=== PATIENT | female | born 1930 | race Caucasian/White ===

== ENCOUNTER 2017-06-16 10:25 | Day surgery (SDC) | payer OTHER ==
[~2017-06-16 10:25] MED LIST: ALBU90OI INH; ASPI325 PO; ASPI81CH PO; ATOR10; ATOR10 PO; CEPH250A PO; DOCU100 PO; ELIQUIS5 MG PO; ESTR.05PBW TOP; ESTR.05TPB TOP; FOLI1 PO; FURO20 PO; GLIP5 PO; GLYB5 PO; LEVSOD175 PO; LEVSOD50; LEVSOD50 PO; Lisinopril2.5 MG; Lisinopril2.5 MG PO; MELO7.5 PO; METF500 PO; METO25 PO; METTREX2.5; METTREX2.5 PO; Metformin HCl500 MG PO; POTA10T PO; TRIHYD253B PO; WARF5 PO; [UNRECOGNIZED DRUG - REMARK]
== END 2017-06-16 11:41 | disposition home or self-care (01) ==
LOC: WOUND 10:25
PROC: 0HBEXZZ Excision of Left Lower Arm Skin, External Approach (ICD-10-PCS; principal; 2017-06-16)
DX: Z48.00 Encounter for change or removal of nonsurgical wound dressing (principal); E11.621 Type 2 diabetes mellitus with foot ulcer; L97.512 Non-pressure chronic ulcer of other part of right foot with fat layer exposed; T81.31XS Disruption of external operation (surgical) wound, not elsewhere classified, sequela; M05.879 Other rheumatoid arthritis with rheumatoid factor of unspecified ankle and foot; E11.622 Type 2 diabetes mellitus with other skin ulcer; L97.821 Non-pressure chronic ulcer of other part of left lower leg limited to breakdown of skin; L97.222 Non-pressure chronic ulcer of left calf with fat layer exposed; L98.491 Non-pressure chronic ulcer of skin of other sites limited to breakdown of skin
CPT/HCPCS: G0463

== ENCOUNTER 2017-06-23 00:34 | Day surgery (SDC) | payer OTHER | END 2017-06-23 22:44 | disposition home or self-care (01) | LOC: WOUND 00:34 | PROC: 0HBMXZZ Excision of Right Foot Skin, External Approach (ICD-10-PCS; principal; 2017-06-23) | DX: Z48.00 Encounter for change or removal of nonsurgical wound dressing (principal); E11.621 Type 2 diabetes mellitus with foot ulcer; L97.512 Non-pressure chronic ulcer of other part of right foot with fat layer exposed; E11.69 Type 2 diabetes mellitus with other specified complication; M05.879 Other rheumatoid arthritis with rheumatoid factor of unspecified ankle and foot; T81.31XS Disruption of external operation (surgical) wound, not elsewhere classified, sequela | CPT/HCPCS: G0463 ==

== ENCOUNTER 2017-06-30 10:20 | Day surgery (SDC) | payer OTHER | END 2017-06-30 11:39 | disposition home or self-care (01) | LOC: WOUND 10:20 | PROC: 0H5 Skin and Breast, Destruction (ICD-10-PCS; principal; 2017-06-30) | DX: Z48.00 Encounter for change or removal of nonsurgical wound dressing (principal); E11.621 Type 2 diabetes mellitus with foot ulcer; L97.829 Non-pressure chronic ulcer of other part of left lower leg with unspecified severity; L97.519 Non-pressure chronic ulcer of other part of right foot with unspecified severity; T81.31XS Disruption of external operation (surgical) wound, not elsewhere classified, sequela; M05.879 Other rheumatoid arthritis with rheumatoid factor of unspecified ankle and foot; M06.9 Rheumatoid arthritis, unspecified | CPT/HCPCS: G0463 ==

== ENCOUNTER 2017-07-07 13:20 | Day surgery (SDC) | payer OTHER | END 2017-07-07 15:10 | disposition home or self-care (01) | LOC: WOUND 13:20 | DX: Z48.00 Encounter for change or removal of nonsurgical wound dressing (principal); E11.621 Type 2 diabetes mellitus with foot ulcer; L97.512 Non-pressure chronic ulcer of other part of right foot with fat layer exposed; T81.31XS Disruption of external operation (surgical) wound, not elsewhere classified, sequela; M05.879 Other rheumatoid arthritis with rheumatoid factor of unspecified ankle and foot | CPT/HCPCS: 87081; G0463 ==

== ENCOUNTER 2017-07-14 13:16 | Day surgery (SDC) | payer OTHER | END 2017-07-14 23:04 | disposition home or self-care (01) | LOC: WOUND 13:16 | DX: Z48.00 Encounter for change or removal of nonsurgical wound dressing (principal); E11.621 Type 2 diabetes mellitus with foot ulcer; L97.512 Non-pressure chronic ulcer of other part of right foot with fat layer exposed; T81.31XS Disruption of external operation (surgical) wound, not elsewhere classified, sequela; M05.879 Other rheumatoid arthritis with rheumatoid factor of unspecified ankle and foot | CPT/HCPCS: 36415; 80053; 85025; 85651; 87081; G0463 ==

== ENCOUNTER 2017-07-21 01:04 | Day surgery (SDC) | payer OTHER | END 2017-07-21 14:20 | disposition home or self-care (01) | LOC: WOUND 01:04 | DX: Z48.00 Encounter for change or removal of nonsurgical wound dressing (principal); E11.621 Type 2 diabetes mellitus with foot ulcer; L97.512 Non-pressure chronic ulcer of other part of right foot with fat layer exposed; T81.31XS Disruption of external operation (surgical) wound, not elsewhere classified, sequela; M05.879 Other rheumatoid arthritis with rheumatoid factor of unspecified ankle and foot; M21.611 Bunion of right foot | CPT/HCPCS: G0463 ==

== ENCOUNTER 2017-08-04 00:27 | Day surgery (SDC) | payer OTHER | END 2017-08-04 22:43 | disposition home or self-care (01) | LOC: WOUND 00:27 | PROC: 0HRMXK3 Replacement of Right Foot Skin with Nonautologous Tissue Substitute, Full Thickness, External Approach (ICD-10-PCS; principal; 2017-08-04) | DX: Z48.00 Encounter for change or removal of nonsurgical wound dressing (principal); E11.621 Type 2 diabetes mellitus with foot ulcer; L97.512 Non-pressure chronic ulcer of other part of right foot with fat layer exposed; L97.511 Non-pressure chronic ulcer of other part of right foot limited to breakdown of skin; L97.521 Non-pressure chronic ulcer of other part of left foot limited to breakdown of skin; T81.31XD Disruption of external operation (surgical) wound, not elsewhere classified, subsequent encounter; M21.611 Bunion of right foot; M05.879 Other rheumatoid arthritis with rheumatoid factor of unspecified ankle and foot; Z79.899 Other long term (current) drug therapy | CPT/HCPCS: G0463; Q4131 ==

== ENCOUNTER 2017-08-11 11:01 | Day surgery (SDC) | payer OTHER | END 2017-08-11 22:54 | disposition home or self-care (01) | LOC: WOUND 11:01 | DX: Z48.00 Encounter for change or removal of nonsurgical wound dressing (principal); T81.31XA Disruption of external operation (surgical) wound, not elsewhere classified, initial encounter; E11.621 Type 2 diabetes mellitus with foot ulcer; L97.512 Non-pressure chronic ulcer of other part of right foot with fat layer exposed; M05.879 Other rheumatoid arthritis with rheumatoid factor of unspecified ankle and foot; M21.611 Bunion of right foot | CPT/HCPCS: G0463 ==

== ENCOUNTER 2017-08-18 13:05 | Day surgery (SDC) | payer OTHER | END 2017-08-18 23:19 | disposition home or self-care (01) | LOC: WOUND 13:05 | DX: E11.621 Type 2 diabetes mellitus with foot ulcer (principal); L97.512 Non-pressure chronic ulcer of other part of right foot with fat layer exposed; T81.31XA Disruption of external operation (surgical) wound, not elsewhere classified, initial encounter; M05.879 Other rheumatoid arthritis with rheumatoid factor of unspecified ankle and foot; M21.611 Bunion of right foot ==

== ENCOUNTER 2017-08-25 13:15 | Day surgery (SDC) | payer OTHER | END 2017-08-25 15:58 | disposition home or self-care (01) | LOC: WOUND 13:15 | DX: L89.899 Pressure ulcer of other site, unspecified stage (principal); E11.621 Type 2 diabetes mellitus with foot ulcer; L97.512 Non-pressure chronic ulcer of other part of right foot with fat layer exposed; T81.31XA Disruption of external operation (surgical) wound, not elsewhere classified, initial encounter; M05.879 Other rheumatoid arthritis with rheumatoid factor of unspecified ankle and foot; M21.611 Bunion of right foot | CPT/HCPCS: G0463 ==

== ENCOUNTER 2017-09-01 00:37 | Day surgery (SDC) | payer OTHER | END 2017-09-01 14:49 | disposition home or self-care (01) | LOC: WOUND 00:37 | DX: Z48.01 Encounter for change or removal of surgical wound dressing (principal); T81.31XD Disruption of external operation (surgical) wound, not elsewhere classified, subsequent encounter; E11.621 Type 2 diabetes mellitus with foot ulcer; L89.899 Pressure ulcer of other site, unspecified stage; M05.879 Other rheumatoid arthritis with rheumatoid factor of unspecified ankle and foot; M21.611 Bunion of right foot; Z86.14 Personal history of Methicillin resistant Staphylococcus aureus infection | CPT/HCPCS: G0463 ==

== ENCOUNTER 2017-09-08 00:25 | Day surgery (SDC) | payer OTHER | END 2017-09-08 22:38 | disposition home or self-care (01) | LOC: WOUND 00:25 | PROC: 0H5 Skin and Breast, Destruction (ICD-10-PCS; principal; 2017-09-08) | DX: Z48.00 Encounter for change or removal of nonsurgical wound dressing (principal); L89.892 Pressure ulcer of other site, stage 2; M06.9 Rheumatoid arthritis, unspecified; T81.31XD Disruption of external operation (surgical) wound, not elsewhere classified, subsequent encounter; E11.621 Type 2 diabetes mellitus with foot ulcer | CPT/HCPCS: G0463 ==

== ENCOUNTER 2017-09-15 13:15 | Day surgery (SDC) | payer OTHER | END 2017-09-15 15:10 | disposition home or self-care (01) | LOC: WOUND 13:15 | DX: E11.621 Type 2 diabetes mellitus with foot ulcer (principal); T81.31XA Disruption of external operation (surgical) wound, not elsewhere classified, initial encounter; L97.512 Non-pressure chronic ulcer of other part of right foot with fat layer exposed; M05.879 Other rheumatoid arthritis with rheumatoid factor of unspecified ankle and foot; M21.611 Bunion of right foot | CPT/HCPCS: G0463 ==

== ENCOUNTER 2017-09-17 11:07 | Day surgery (SDC) | payer OTHER | END 2017-09-17 22:50 | disposition home or self-care (01) | LOC: WOUND 11:07 | PROC: 2W1RX6Z Compression of Left Lower Leg using Pressure Dressing (ICD-10-PCS; principal; 2017-09-17) | DX: T81.31XA Disruption of external operation (surgical) wound, not elsewhere classified, initial encounter (principal); E11.621 Type 2 diabetes mellitus with foot ulcer; L97.512 Non-pressure chronic ulcer of other part of right foot with fat layer exposed; M05.879 Other rheumatoid arthritis with rheumatoid factor of unspecified ankle and foot; M21.611 Bunion of right foot ==

== ENCOUNTER 2017-09-22 13:12 | Day surgery (SDC) | payer OTHER | END 2017-09-22 22:57 | disposition home or self-care (01) | LOC: WOUND 13:12 | DX: E11.621 Type 2 diabetes mellitus with foot ulcer (principal); T81.31XA Disruption of external operation (surgical) wound, not elsewhere classified, initial encounter; L97.812 Non-pressure chronic ulcer of other part of right lower leg with fat layer exposed; M05.879 Other rheumatoid arthritis with rheumatoid factor of unspecified ankle and foot; M21.611 Bunion of right foot | CPT/HCPCS: G0463 ==

== ENCOUNTER 2017-09-29 13:15 | Day surgery (SDC) | payer OTHER | END 2017-09-29 22:53 | disposition home or self-care (01) | LOC: WOUND 13:15 | DX: Z48.00 Encounter for change or removal of nonsurgical wound dressing (principal); E11.621 Type 2 diabetes mellitus with foot ulcer; L97.512 Non-pressure chronic ulcer of other part of right foot with fat layer exposed; T81.31XA Disruption of external operation (surgical) wound, not elsewhere classified, initial encounter; M21.611 Bunion of right foot | CPT/HCPCS: G0463 ==

== ENCOUNTER 2017-10-06 13:13 | Day surgery (SDC) | payer OTHER | END 2017-10-06 22:57 | disposition home or self-care (01) | LOC: WOUND 13:13 | DX: E11.621 Type 2 diabetes mellitus with foot ulcer (principal); L97.512 Non-pressure chronic ulcer of other part of right foot with fat layer exposed; T81.31XA Disruption of external operation (surgical) wound, not elsewhere classified, initial encounter; M05.879 Other rheumatoid arthritis with rheumatoid factor of unspecified ankle and foot; M21.611 Bunion of right foot | CPT/HCPCS: G0463 ==

== ENCOUNTER 2017-10-13 13:05 | Day surgery (SDC) | payer OTHER | END 2017-10-13 23:36 | disposition home or self-care (01) | LOC: WOUND 13:05 | PROC: 0H5 Skin and Breast, Destruction (ICD-10-PCS; principal; 2017-10-13) | DX: E11.621 Type 2 diabetes mellitus with foot ulcer (principal); L97.512 Non-pressure chronic ulcer of other part of right foot with fat layer exposed; T81.31XA Disruption of external operation (surgical) wound, not elsewhere classified, initial encounter; M05.879 Other rheumatoid arthritis with rheumatoid factor of unspecified ankle and foot; M21.611 Bunion of right foot ==

== ENCOUNTER 2017-10-20 13:04 | Day surgery (SDC) | payer OTHER | END 2017-10-20 22:47 | disposition home or self-care (01) | LOC: WOUND 13:04 | PROC: 0HBMXZZ Excision of Right Foot Skin, External Approach (ICD-10-PCS; principal; 2017-10-20) | DX: E11.621 Type 2 diabetes mellitus with foot ulcer (principal); L97.512 Non-pressure chronic ulcer of other part of right foot with fat layer exposed; T81.31XA Disruption of external operation (surgical) wound, not elsewhere classified, initial encounter; M05.879 Other rheumatoid arthritis with rheumatoid factor of unspecified ankle and foot; M21.611 Bunion of right foot | CPT/HCPCS: G0463 ==

== ENCOUNTER 2017-10-27 13:06 | Day surgery (SDC) | payer OTHER | END 2017-10-27 22:40 | disposition home or self-care (01) | LOC: WOUND 13:06 | DX: Z48.00 Encounter for change or removal of nonsurgical wound dressing (principal); E11.621 Type 2 diabetes mellitus with foot ulcer; L97.512 Non-pressure chronic ulcer of other part of right foot with fat layer exposed; M05.879 Other rheumatoid arthritis with rheumatoid factor of unspecified ankle and foot; M21.611 Bunion of right foot; T81.31XA Disruption of external operation (surgical) wound, not elsewhere classified, initial encounter | CPT/HCPCS: G0463 ==

== ENCOUNTER 2017-11-03 00:32 | Day surgery (SDC) | payer OTHER | END 2017-11-03 14:39 | disposition home or self-care (01) | LOC: WOUND 00:32 | PROC: 0H5 Skin and Breast, Destruction (ICD-10-PCS; principal; 2017-11-03) | DX: E11.621 Type 2 diabetes mellitus with foot ulcer (principal); L97.512 Non-pressure chronic ulcer of other part of right foot with fat layer exposed; T81.31XA Disruption of external operation (surgical) wound, not elsewhere classified, initial encounter; L89.899 Pressure ulcer of other site, unspecified stage | CPT/HCPCS: G0463 ==

== ENCOUNTER 2017-11-10 | Day surgery (SDC) | END 2017-11-10 14:41 | disposition home or self-care (01) ==

== ENCOUNTER 2017-11-17 00:21 | Day surgery (SDC) | payer OTHER | END 2017-11-17 23:06 | disposition home or self-care (01) | LOC: WOUND 00:21 | DX: Z48.00 Encounter for change or removal of nonsurgical wound dressing (principal); E11.621 Type 2 diabetes mellitus with foot ulcer; L97.512 Non-pressure chronic ulcer of other part of right foot with fat layer exposed; T81.31XA Disruption of external operation (surgical) wound, not elsewhere classified, initial encounter; M05.879 Other rheumatoid arthritis with rheumatoid factor of unspecified ankle and foot; M21.611 Bunion of right foot | CPT/HCPCS: G0463 ==

== ENCOUNTER 2017-11-24 13:15 | Day surgery (SDC) | payer OTHER | END 2017-11-24 14:27 | disposition home or self-care (01) | LOC: WOUND 13:15 | DX: Z48.01 Encounter for change or removal of surgical wound dressing (principal); T81.31XA Disruption of external operation (surgical) wound, not elsewhere classified, initial encounter; E11.621 Type 2 diabetes mellitus with foot ulcer; L97.812 Non-pressure chronic ulcer of other part of right lower leg with fat layer exposed; M05.879 Other rheumatoid arthritis with rheumatoid factor of unspecified ankle and foot; M21.611 Bunion of right foot | CPT/HCPCS: G0463 ==

== ENCOUNTER 2017-12-01 15:21 | Observation (INO) | payer OTHER ==
[~2017-12-01] VITALS: Ht 157.5 cm; Wt 58.0 kg
[2017-12-01 19:44] LABS: BASOPHILS ABSOLUTE AUTO 0.04 K/mm3 (0.00-0.23); BASOPHILS PERCENT AUTO 0 % (0-2); EOSINOPHILS ABSOLUTE AUTO 0.01 K/mm3 (0.00-0.68); EOSINOPHILS PERCENT AUTO 0 % (0-6); Hematocrit 30.6 % (33.0-51.0); Hemoglobin 10.1 g/dL (11.5-16.0); IMMATURE GRAN ABSOLUTE AUTO 0.09 K/mm3 (0.00-0.10); IMMATURE GRAN PERCENT AUTO 1 % (0-1); LYMPHOCYTES ABSOLUTE AUTO 0.71 K/mm3 (0.84-5.20); LYMPHOCYTES PERCENT AUTO 5 % (21-46); MONOCYTES ABSOLUTE AUTO 1.02 K/mm3 (0.16-1.47); MONOCYTES PERCENT AUTO 7 % (4-13); Mean Corpuscular HGB 29.3 pg (26.0-34.0); Mean Corpuscular Volume 89 fL (80-100); Mean Platelet Volume 10.8 fL (9.1-12.4); NEUTROPHILS ABSOLUTE AUTO 13.45 K/mm3 (1.96-9.15); NEUTROPHILS PERCENT AUTO 88 % (41-73); Platelet Count 276 K/mm3 (150-400); RDW Coefficient Variation 17.6 % (11.7-14.2); RDW Standard Deviation 53.8 fL (35.1-46.3); Red Blood Cell Count 3.45 M/mm3 (3.80-5.20); White Blood Cell Count 15.32 K/mm3 (4.00-11.30)
[2017-12-01 20:02] LABS: Alanine Aminotransfer (ALT/SGP 22 U/L (12-78); Albumin, Blood 3.6 g/dL (3.4-5.0); Albumin/Globulin Ratio 0.9 (0.8-1.8); Alk Phos 105 U/L (50-136); Anion Gap 13 mmol/L (6-16); Aspartate Aminotrans (AST/SGOT 18 U/L (12-37); Bilirubin, Total 0.4 mg/dL (0.1-1.0); Blood Urea Nitrogen 24 mg/dL (8-24); Bun/Creatinine Ratio 27.4 (12.0-20.0); CO2, Blood 23 mmol/L (21-32); Calcium, Blood 9.3 mg/dL (8.5-10.1); Chloride, Blood 98 mmol/L (98-108); Creatinine, Blood 0.88 mg/dL (0.40-1.00); Glomerular Filtration Rate >60 (60-); Glucose, Blood 215 mg/dL (70-99); Potassium, Blood 3.5 mmol/L (3.5-5.5); Sodium, Blood 134 mmol/L (136-145); Total Protein, Blood 7.6 g/dL (6.4-8.2)
[2017-12-01 20:55] LABS: Source, Urine Catheter
[2017-12-01 21:03] LABS: Bilirubin, Urine Neg (Neg); Blood, Urine 1+ (Neg); Glucose Qualitative, Urine 2+ (Neg); Ketones, Urine Neg (Neg); Leukocyte Esterase, Urine Neg (Neg); Nitrite, Urine Neg (Neg); Protein, Urine Neg (Neg); Urobilinogen, Urine NORM (Normal)
[2017-12-01 21:16] LABS: Appearance, Urine Clear (Clear); Color, Urine Pale Yellow (P-Yellow)
[2017-12-01 21:18] LABS: Bacteria Not Seen /hpf; Red Blood Cells, Urine 0-2 /hpf (0-2); Squamous Epithelial Cells Rare /hpf (Few); White Blood Cells, Urine Not Seen /hpf (0-5)
[2017-12-02 04:31] LABS: BASOPHILS ABSOLUTE AUTO 0.02 K/mm3 (0.00-0.23); BASOPHILS PERCENT AUTO 0 % (0-2); EOSINOPHILS ABSOLUTE AUTO 0.05 K/mm3 (0.00-0.68); EOSINOPHILS PERCENT AUTO 1 % (0-6); Hematocrit 28.3 % (33.0-51.0); Hemoglobin 9.2 g/dL (11.5-16.0); IMMATURE GRAN ABSOLUTE AUTO 0.04 K/mm3 (0.00-0.10); IMMATURE GRAN PERCENT AUTO 1 % (0-1); LYMPHOCYTES ABSOLUTE AUTO 0.92 K/mm3 (0.84-5.20); LYMPHOCYTES PERCENT AUTO 13 % (21-46); MONOCYTES ABSOLUTE AUTO 0.78 K/mm3 (0.16-1.47); MONOCYTES PERCENT AUTO 11 % (4-13); Mean Corpuscular HGB 28.8 pg (26.0-34.0); Mean Corpuscular HGB Conc 32.5 g/dL (31.5-36.5); Mean Corpuscular Volume 89 fL (80-100); Mean Platelet Volume 11.1 fL (9.1-12.4); NEUTROPHILS ABSOLUTE AUTO 5.04 K/mm3 (1.96-9.15); NEUTROPHILS PERCENT AUTO 74 % (41-73); Platelet Count 231 K/mm3 (150-400); RDW Coefficient Variation 17.6 % (11.7-14.2); RDW Standard Deviation 54.6 fL (35.1-46.3); Red Blood Cell Count 3.19 M/mm3 (3.80-5.20); White Blood Cell Count 6.85 K/mm3 (4.00-11.30)
[2017-12-02 04:57] LABS: Anion Gap 10 mmol/L (6-16); Blood Urea Nitrogen 23 mg/dL (8-24); Bun/Creatinine Ratio 27.3 (12.0-20.0); CO2, Blood 28 mmol/L (21-32); Calcium, Blood 9.2 mg/dL (8.5-10.1); Chloride, Blood 99 mmol/L (98-108); Creatinine, Blood 0.84 mg/dL (0.40-1.00); Glomerular Filtration Rate >60 (60-); Glucose, Blood 135 mg/dL (70-99); Potassium, Blood 3.7 mmol/L (3.5-5.5); Sodium, Blood 137 mmol/L (136-145)
[2017-12-02] MEDS ORDERED: OMEPRAZOLE MAGN20 MG PO (09:32)
[2017-12-03] MEDS ORDERED: GAVILAX17 GM PO (11:10)
[2017-12-03] MEDS ORDERED: ACET325 PO (11:10)
[2017-12-03] MEDS ORDERED: HYDR1TAB94 PO (11:11)
== END 2017-12-03 18:02 ==
LOC: ER 15:21 → SURS 15:22 → ER 18:42 → SURS 18:42
PROVIDERS: Hospitalist; Nurse Practitioner Family
DX: S32.592A Other specified fracture of left pubis, initial encounter for closed fracture (principal); S42.292A Other displaced fracture of upper end of left humerus, initial encounter for closed fracture; I10 Essential (primary) hypertension; E11.9 Type 2 diabetes mellitus without complications; E03.9 Hypothyroidism, unspecified; I48.91 Unspecified atrial fibrillation; K21.9 Gastro-esophageal reflux disease without esophagitis; M06.9 Rheumatoid arthritis, unspecified; Z79.01 Long term (current) use of anticoagulants; Z79.899 Other long term (current) drug therapy; W01.0XXA Fall on same level from slipping, tripping and stumbling without subsequent striking against object, initial encounter
CPT/HCPCS: 36415; 51702; 73030; 73502; 80048; 80053; 81001; 82947; 85025; 97116; 97162; 97166; 97530; 97535; 99285; G8978; G8979; G8987; G8988; J2405

== ENCOUNTER 2018-06-02 00:19 | Day surgery (SDC) | payer OTHER ==
[~2018-06-02 00:19] MED LIST changes: +ACET325 PO; +GAVILAX17 GM PO; +HYDR1TAB94 PO; +OMEPRAZOLE MAGN20 MG PO
== END 2018-06-02 22:49 | disposition home or self-care (01) ==
LOC: WOUND 00:19
DX: E11.621 Type 2 diabetes mellitus with foot ulcer (principal); L97.822 Non-pressure chronic ulcer of other part of left lower leg with fat layer exposed; L97.521 Non-pressure chronic ulcer of other part of left foot limited to breakdown of skin; M06.9 Rheumatoid arthritis, unspecified; E11.21 Type 2 diabetes mellitus with diabetic nephropathy
CPT/HCPCS: G0463

== ENCOUNTER 2018-06-16 12:30 | Day surgery (SDC) | payer OTHER | END 2018-06-16 22:43 | disposition home or self-care (01) | LOC: WOUND 12:30 | DX: E11.621 Type 2 diabetes mellitus with foot ulcer (principal); E11.622 Type 2 diabetes mellitus with other skin ulcer; L97.822 Non-pressure chronic ulcer of other part of left lower leg with fat layer exposed; L97.529 Non-pressure chronic ulcer of other part of left foot with unspecified severity; S91.301A Unspecified open wound, right foot, initial encounter; E11.21 Type 2 diabetes mellitus with diabetic nephropathy; M06.9 Rheumatoid arthritis, unspecified | CPT/HCPCS: 87070; 87077; 87186; 87205 ==

== ENCOUNTER 2018-06-23 13:15 | Day surgery (SDC) | payer OTHER | END 2018-06-23 22:39 | disposition home or self-care (01) | LOC: WOUND 13:15 | DX: E11.621 Type 2 diabetes mellitus with foot ulcer (principal); E11.622 Type 2 diabetes mellitus with other skin ulcer; L97.822 Non-pressure chronic ulcer of other part of left lower leg with fat layer exposed; L97.529 Non-pressure chronic ulcer of other part of left foot with unspecified severity; M06.9 Rheumatoid arthritis, unspecified; Z79.01 Long term (current) use of anticoagulants | CPT/HCPCS: G0463 ==

== ENCOUNTER 2018-07-07 00:19 | Day surgery (SDC) | payer OTHER | END 2018-07-07 22:40 | disposition home or self-care (01) | LOC: WOUND 00:19 | DX: E11.622 Type 2 diabetes mellitus with other skin ulcer (principal); L97.822 Non-pressure chronic ulcer of other part of left lower leg with fat layer exposed; L97.529 Non-pressure chronic ulcer of other part of left foot with unspecified severity; M06.9 Rheumatoid arthritis, unspecified; E11.21 Type 2 diabetes mellitus with diabetic nephropathy; Z79.84 Long term (current) use of oral hypoglycemic drugs; Z79.01 Long term (current) use of anticoagulants | CPT/HCPCS: G0463 ==

== ENCOUNTER 2018-07-15 09:59 | Day surgery (SDC) | payer OTHER | END 2018-07-15 23:18 | disposition home or self-care (01) | LOC: WOUND 09:59 | DX: E11.621 Type 2 diabetes mellitus with foot ulcer (principal); L97.822 Non-pressure chronic ulcer of other part of left lower leg with fat layer exposed; L97.528 Non-pressure chronic ulcer of other part of left foot with other specified severity; E11.622 Type 2 diabetes mellitus with other skin ulcer; E11.21 Type 2 diabetes mellitus with diabetic nephropathy; M06.9 Rheumatoid arthritis, unspecified; Z79.01 Long term (current) use of anticoagulants; Z79.84 Long term (current) use of oral hypoglycemic drugs ==

== ENCOUNTER 2018-07-28 00:35 | Day surgery (SDC) | payer OTHER | END 2018-07-28 22:46 | disposition home or self-care (01) | LOC: WOUND 00:35 | DX: E11.621 Type 2 diabetes mellitus with foot ulcer (principal); L97.829 Non-pressure chronic ulcer of other part of left lower leg with unspecified severity; L97.529 Non-pressure chronic ulcer of other part of left foot with unspecified severity; M06.9 Rheumatoid arthritis, unspecified; E11.21 Type 2 diabetes mellitus with diabetic nephropathy; E11.622 Type 2 diabetes mellitus with other skin ulcer; Z79.01 Long term (current) use of anticoagulants; Z79.84 Long term (current) use of oral hypoglycemic drugs | CPT/HCPCS: G0463 ==

== ENCOUNTER 2018-08-05 00:17 | Day surgery (SDC) | payer OTHER | END 2018-08-05 22:43 | disposition home or self-care (01) | LOC: WOUND 00:17 | DX: E11.622 Type 2 diabetes mellitus with other skin ulcer (principal); L97.822 Non-pressure chronic ulcer of other part of left lower leg with fat layer exposed; L97.529 Non-pressure chronic ulcer of other part of left foot with unspecified severity; L97.519 Non-pressure chronic ulcer of other part of right foot with unspecified severity; E11.21 Type 2 diabetes mellitus with diabetic nephropathy; M06.9 Rheumatoid arthritis, unspecified; Z79.84 Long term (current) use of oral hypoglycemic drugs ==

== ENCOUNTER 2018-09-01 00:33 | Day surgery (SDC) | payer OTHER | END 2018-09-01 22:36 | disposition home or self-care (01) | LOC: WOUND 00:33 | DX: E11.621 Type 2 diabetes mellitus with foot ulcer (principal); E11.622 Type 2 diabetes mellitus with other skin ulcer; L97.822 Non-pressure chronic ulcer of other part of left lower leg with fat layer exposed; L97.522 Non-pressure chronic ulcer of other part of left foot with fat layer exposed; L97.221 Non-pressure chronic ulcer of left calf limited to breakdown of skin; L97.511 Non-pressure chronic ulcer of other part of right foot limited to breakdown of skin; L97.811 Non-pressure chronic ulcer of other part of right lower leg limited to breakdown of skin; E11.21 Type 2 diabetes mellitus with diabetic nephropathy; E11.42 Type 2 diabetes mellitus with diabetic polyneuropathy; I48.91 Unspecified atrial fibrillation; I10 Essential (primary) hypertension; M06.9 Rheumatoid arthritis, unspecified ==

== ENCOUNTER 2018-09-08 00:11 | Day surgery (SDC) | payer OTHER | END 2018-09-08 22:40 | disposition home or self-care (01) | LOC: WOUND 00:11 | DX: E11.622 Type 2 diabetes mellitus with other skin ulcer (principal); L97.221 Non-pressure chronic ulcer of left calf limited to breakdown of skin; L97.811 Non-pressure chronic ulcer of other part of right lower leg limited to breakdown of skin; E11.621 Type 2 diabetes mellitus with foot ulcer; L97.511 Non-pressure chronic ulcer of other part of right foot limited to breakdown of skin; E11.21 Type 2 diabetes mellitus with diabetic nephropathy; M06.9 Rheumatoid arthritis, unspecified; I10 Essential (primary) hypertension | CPT/HCPCS: G0463 ==

== ENCOUNTER 2018-09-15 01:26 | Day surgery (SDC) | payer OTHER | END 2018-09-15 23:12 | disposition home or self-care (01) | LOC: WOUND 01:26 | DX: E11.622 Type 2 diabetes mellitus with other skin ulcer (principal); L97.812 Non-pressure chronic ulcer of other part of right lower leg with fat layer exposed; L97.829 Non-pressure chronic ulcer of other part of left lower leg with unspecified severity; L97.529 Non-pressure chronic ulcer of other part of left foot with unspecified severity; L97.519 Non-pressure chronic ulcer of other part of right foot with unspecified severity; E11.42 Type 2 diabetes mellitus with diabetic polyneuropathy; E11.21 Type 2 diabetes mellitus with diabetic nephropathy; I10 Essential (primary) hypertension; I48.91 Unspecified atrial fibrillation; M06.9 Rheumatoid arthritis, unspecified; Z79.84 Long term (current) use of oral hypoglycemic drugs; Z79.899 Other long term (current) drug therapy | CPT/HCPCS: G0463 ==

== ENCOUNTER 2018-09-30 10:52 | Day surgery (SDC) | payer OTHER | END 2018-09-30 22:46 | disposition home or self-care (01) | LOC: WOUND 10:52 | DX: E11.622 Type 2 diabetes mellitus with other skin ulcer (principal); L97.221 Non-pressure chronic ulcer of left calf limited to breakdown of skin; L97.511 Non-pressure chronic ulcer of other part of right foot limited to breakdown of skin; L97.811 Non-pressure chronic ulcer of other part of right lower leg limited to breakdown of skin; E11.42 Type 2 diabetes mellitus with diabetic polyneuropathy; E11.21 Type 2 diabetes mellitus with diabetic nephropathy; I48.91 Unspecified atrial fibrillation; I10 Essential (primary) hypertension; M06.9 Rheumatoid arthritis, unspecified ==

== ENCOUNTER 2018-10-11 10:55 | Day surgery (SDC) | payer OTHER | END 2018-10-11 23:07 | disposition home or self-care (01) | LOC: WOUND 10:55 | DX: E11.622 Type 2 diabetes mellitus with other skin ulcer (principal); E11.621 Type 2 diabetes mellitus with foot ulcer; L97.511 Non-pressure chronic ulcer of other part of right foot limited to breakdown of skin; L97.811 Non-pressure chronic ulcer of other part of right lower leg limited to breakdown of skin; L97.221 Non-pressure chronic ulcer of left calf limited to breakdown of skin; L97.829 Non-pressure chronic ulcer of other part of left lower leg with unspecified severity; E11.42 Type 2 diabetes mellitus with diabetic polyneuropathy; I48.91 Unspecified atrial fibrillation; I10 Essential (primary) hypertension; M06.9 Rheumatoid arthritis, unspecified | CPT/HCPCS: G0463 ==

== ENCOUNTER 2018-10-27 00:06 | Day surgery (SDC) | payer OTHER | END 2018-10-27 22:45 | disposition home or self-care (01) | LOC: WOUND 00:06 | DX: E11.621 Type 2 diabetes mellitus with foot ulcer (principal); E11.622 Type 2 diabetes mellitus with other skin ulcer; L97.511 Non-pressure chronic ulcer of other part of right foot limited to breakdown of skin; L97.221 Non-pressure chronic ulcer of left calf limited to breakdown of skin; L97.811 Non-pressure chronic ulcer of other part of right lower leg limited to breakdown of skin; E11.42 Type 2 diabetes mellitus with diabetic polyneuropathy; E11.21 Type 2 diabetes mellitus with diabetic nephropathy; I10 Essential (primary) hypertension; I48.91 Unspecified atrial fibrillation; M06.9 Rheumatoid arthritis, unspecified | CPT/HCPCS: G0463 ==

== ENCOUNTER 2018-11-11 13:31 | Day surgery (SDC) | payer OTHER | END 2018-11-11 23:13 | disposition home or self-care (01) | LOC: WOUND 13:31 | DX: E11.621 Type 2 diabetes mellitus with foot ulcer (principal); E11.622 Type 2 diabetes mellitus with other skin ulcer; L97.221 Non-pressure chronic ulcer of left calf limited to breakdown of skin; L97.511 Non-pressure chronic ulcer of other part of right foot limited to breakdown of skin; L97.811 Non-pressure chronic ulcer of other part of right lower leg limited to breakdown of skin; E11.42 Type 2 diabetes mellitus with diabetic polyneuropathy; M06.9 Rheumatoid arthritis, unspecified; I48.91 Unspecified atrial fibrillation; I10 Essential (primary) hypertension; E11.21 Type 2 diabetes mellitus with diabetic nephropathy | CPT/HCPCS: G0463 ==

== ENCOUNTER 2019-02-14 15:11 | Inpatient (IN) | payer OTHER ==
[~2019-02-14] VITALS: Ht 167.6 cm; Wt 62.0 kg
[2019-02-14 15:51] LABS: BASOPHILS ABSOLUTE AUTO 0.02 K/mm3 (0.00-0.23); BASOPHILS PERCENT AUTO 0 % (0-2); EOSINOPHILS ABSOLUTE AUTO 0.01 K/mm3 (0.00-0.68); EOSINOPHILS PERCENT AUTO 0 % (0-6); Hematocrit 30.1 % (33.0-51.0); Hemoglobin 10.3 g/dL (11.5-16.0); IMMATURE GRAN PERCENT AUTO 1 % (0-1); LYMPHOCYTES ABSOLUTE AUTO 0.33 K/mm3 (0.84-5.20); LYMPHOCYTES PERCENT AUTO 2 % (21-46); MONOCYTES ABSOLUTE AUTO 0.59 K/mm3 (0.16-1.47); MONOCYTES PERCENT AUTO 4 % (4-13); Mean Corpuscular HGB 33.1 pg (26.0-34.0); Mean Corpuscular HGB Conc 34.2 g/dL (31.5-36.5); Mean Corpuscular Volume 97 fL (80-100); Mean Platelet Volume 10.3 fL (9.1-12.4); NEUTROPHILS ABSOLUTE AUTO 14.27 K/mm3 (1.96-9.15); NEUTROPHILS PERCENT AUTO 93 % (41-73); Platelet Count 284 K/mm3 (150-400); RDW Coefficient Variation 16.7 % (11.7-14.2); Red Blood Cell Count 3.11 M/mm3 (3.80-5.20); White Blood Cell Count 15.32 K/mm3 (4.00-11.30)
[2019-02-14 16:08] LABS: Albumin, Blood 3.1 g/dL (3.4-5.0); Albumin/Globulin Ratio 0.6 (0.8-1.8); Bilirubin, Total 1.2 mg/dL (0.1-1.0); Bun/Creatinine Ratio 27.3 (12.0-20.0); Calcium, Blood 10.4 mg/dL (8.5-10.1); Creatinine, Blood 1.1 mg/dL (0.40-1.00); Globulin, Blood 4.9 g/dL (2.2-4.0); Potassium, Blood 3.2 mmol/L (3.5-5.5)
[2019-02-15 03:38] LABS: BASOPHILS ABSOLUTE AUTO 0.03 K/mm3 (0.00-0.23); BASOPHILS PERCENT AUTO 0 % (0-2); EOSINOPHILS ABSOLUTE AUTO 0.08 K/mm3 (0.00-0.68); EOSINOPHILS PERCENT AUTO 1 % (0-6); Hematocrit 32.4 % (33.0-51.0); Hemoglobin 10.5 g/dL (11.5-16.0); IMMATURE GRAN ABSOLUTE AUTO 0.08 K/mm3 (0.00-0.10); IMMATURE GRAN PERCENT AUTO 1 % (0-1); LYMPHOCYTES PERCENT AUTO 3 % (21-46); MONOCYTES ABSOLUTE AUTO 0.83 K/mm3 (0.16-1.47); MONOCYTES PERCENT AUTO 6 % (4-13); Mean Corpuscular HGB 33.2 pg (26.0-34.0); Mean Corpuscular HGB Conc 32.4 g/dL (31.5-36.5); Mean Platelet Volume 10.5 fL (9.1-12.4); NEUTROPHILS ABSOLUTE AUTO 12.32 K/mm3 (1.96-9.15); NEUTROPHILS PERCENT AUTO 90 % (41-73); Platelet Count 227 K/mm3 (150-400); RDW Coefficient Variation 17.1 % (11.7-14.2); RDW Standard Deviation 63.1 fL (35.1-46.3); Red Blood Cell Count 3.16 M/mm3 (3.80-5.20); White Blood Cell Count 13.74 K/mm3 (4.00-11.30)
[2019-02-15 03:46] LABS: Mean Corpuscular Volume 103 fL (80-100)
[2019-02-15 04:12] LABS: International Normalized Ratio 1.13; Prothrombin Time Results 11.8 Sec (9.7-11.5)
[2019-02-15 04:17] LABS: Anion Gap 9 mmol/L (6-16); Blood Urea Nitrogen 26 mg/dL (8-24); Bun/Creatinine Ratio 29.3 (12.0-20.0); CO2, Blood 22 mmol/L (21-32); Calcium, Blood 9.3 mg/dL (8.5-10.1); Chloride, Blood 103 mmol/L (98-108); Creatinine, Blood 0.89 mg/dL (0.40-1.00); Glomerular Filtration Rate >60 (60-); Glucose, Blood 121 mg/dL (70-99); Potassium, Blood 4.3 mmol/L (3.5-5.5); Sodium, Blood 134 mmol/L (136-145)
--- NOTE | 2019-02-15 06:16 | NUR ---
SHIFT SUMMARY PT SLEEPING IN ROOM COMFORTABLY AT THIS TIME. NO ACUTE CHANGES IN STATUS SINCE ARRIVAL TO UNIT. PT ABLE TO STAND AND WALK TO RR W/ SBA AND 4WW. PT HAS WOUND TO LEFT FOOT THAT IS DRESSED AND WRAPPED IN STOCKINETTE. RESP EVEN UNLABORED ON RA W/ SATS >92%. PT DENIES ANY CP OR SOB. PT DOES REPORT SOME PAIN TO NECK D/T "SLEEPING FUNNY". PT WAS MEDICATED PER EMAR. NS INFUSING IN PIV TO LAC. CALL LIGHT IN REACH.
--- NOTE | 2019-02-15 11:20 | NUR ---
NOON ASSESSMENT NO CHANGES TO REPORT SINCE AM ASSESSMENT. PT REPORTS N/T TO L FOOT/TOES. AWAIING DR. DUMONT FOR CONSULT. PT REMAINS NPO AT THIS TIME.
--- NOTE | 2019-02-15 16:42 | NUR ---
PT TAKEN TO DAY SURGERY AT THIS TIME.
--- NOTE | 2019-02-15 16:43 | NUR ---
AFTERNOON ASSESSMENT NO CHANGE IN PATIENTS CONDITION SINCE PREVIOUS ASSESSMENT. DRESSING PLACED TO LLE, SEROSANGUINOUS DRAINAGE FROM WOUND. CAP REFILL WNL LLE. WILL CONTINUE TO MONITOR.
--- NOTE | 2019-02-15 17:01 | NUR ---
History, Chart, Medications and Allergies reviewed before start of procedure.Patient confirms NPO status and agrees with scheduled surgery.PATIENT CAME TO DAY SURGERY FROM PCU 8 VIA GURNEY. DENTURES OK TO LEAVE IN FOR SURGERY VIA ANESTHESIOLOGIST.
--- NOTE | 2019-02-15 17:13 | NUR ---
YOUSIF IN DAY SURGERY NOTIFIED THAT PT IS DIABETIC.
--- NOTE | 2019-02-15 17:51 | NUR ---
02/15/[address] INJECTED 1% LIDO AND 0.5% MARCAINE 20 ML 1:1 RATIO
--- NOTE | 2019-02-15 19:39 | NUR ---
SHIFT SUMMARY PT ARRIVED BACK TO THE ROOM POST-OP AT APPROXIMATELY 1840. PT ALERT AND ORIENTED UPON ARRIVAL. SHE DENIES PAIN. VSS. CAP REFILL TO LLE WNL, DRESSING C/D/I. REPORT GIVEN TO STELLA TRONCOSO.
[2019-02-15 20:20] LABS: Vancomycin, Trough 5.3 ug/mL (5.0-10.0)
[2019-02-16 04:30] LABS: Anion Gap 9 mmol/L (6-16); Blood Urea Nitrogen 29 mg/dL (8-24); Bun/Creatinine Ratio 36.7 (12.0-20.0); CO2, Blood 20 mmol/L (21-32); Calcium, Blood 9.2 mg/dL (8.5-10.1); Chloride, Blood 105 mmol/L (98-108); Creatinine, Blood 0.79 mg/dL (0.40-1.00); Glomerular Filtration Rate >60 (60-); Glucose, Blood 103 mg/dL (70-99); Sodium, Blood 134 mmol/L (136-145)
--- NOTE | 2019-02-16 05:35 | NUR ---
SHIFT SUMMARY PT HAS REMAINED AOX4 THROUGHOUT SHIFT. VSS. PLEASANT AND COOPERATIVE WITH CARE. PT WITH POST SURGICAL DRESSING TO L FOOT WITH VERBAL ORDERS PER PREVIOUS RN TO KEEP DRESSING IN PLACE UNTIL RE-DRESSED BY SURGEON, REINFORCEMENT OF DRESSING OK IF STARTING TO LEAK. DRESSING HAS REMAINED C/D/I THROUGHOUT SHIFT. EXPOSED FOOT HAS REMAINED PINK AND DRY W/CAP REFILL WNL. PT AMBULATES WITH STANDBY ASSIST AND FWW TO BS. TOLERATES SOME WEIGHT BEARING ON L FOOT, BUT PREFERS PIVOT TRANSFER. DENIES PAIN THROUGHOUT THE NIGHT. POWERGLIDE PLACED TO IZA. CARDIAC RHYTHM REMAINS IN A-FIB WITH AN AVERAGE RATE IN THE 80s PER MONITOR, PT WILL OCCASIONALLY BECOME TACHYCARDIC W/RATE IN 130-140s WITH ACTIVITY, BUT APPEARS TO BE ASYMPOTMATIC. NO OTHER CHANGES NOTED FROM INITIAL ASSESSMENT. WILL CONTINUE TO MONITOR AND REPORT TO ONCOMING SHIFT RN. BED IN LOW POSITION, CALL LIGHT IN REACH.
--- NOTE | 2019-02-16 10:10 | NUR ---
PCU DAYSHIFT ASSUMED CARE OF PT APPROX. 0700. PT A&OX4. VITAL SIGNS STABLE. ASSESSMENT COMPLETED. PT DENIES ANY PAIN AT TIME OF ASSESSMENT. PT UP IN CHAIR AT THIS TIME. DRESSING REMAINS INTACT ON LEFT FOOD. NO OBVIOUS DRAINAGE NOTED ON DRESSING. AWAITING PHYSICIAN TO CHANGED OUT DRESSING TO LOOK AT WOUND UNDER DRESSING. SKIN ON LEFT FOOT NOTED TO HAVE GOOD CAP REFIL AND COLOR. SLIGHT EDEMA NOTED. ELEVATED FOOT ON PILLOW WHILE PT IN BED. DISCUSSED WITH PT ABOUT GETTING UP TO CHAIR EVERY COUPLE OF HOURS. PT IN BED. BED IN LOW POSITION ,CALL LIGHT IN REACH AND PT DENIES ANY NEEDS. WILL CONTINUE TO MONITOR.
--- NOTE | 2019-02-16 11:52 | NUR ---
NOTE PT ARRIVED BACK TO UNIT FROM MRI
--- NOTE | 2019-02-16 17:39 | NUR ---
SHIFT SUMMARY PT PLEASANT, COOPERATIVE AND USES CALL LIGHT APPROPRIATELY. PT VITAL SIGNS STABLE. T/O SHIFT. ALTHOUGH PT BLOOD PRESSURE SLIGHTLY LOW BUT MAP REMAINS IN 60'S. ASSESSMENT FINDINGS REMAIN UNCHANGED. HAVE NOT SEEN DR DUMONT YET TODAY. WOUND DRESSING REMAINS INTACT AND NO DRAINAGE NOTED. PT ABLE TO AMBULATE TO BATHROOM NEEDED. PT ABLE TO WORK WITH P.T. TODAY. FAMILY AT BEDSDIE INTERMITTENTLY. PT UP TO CHAIR INTERMITTENTLY. PT UP IN CHAIR NOW. FOOT UP ON SIDE OF BED. CALL LIGHT IN REACH. PT DENIES ANY NEEDS. WILL CONTINUE TO MONITOR UNTIL HANDOFF TO NIGHTSHIFT RN
[2019-02-16 20:56] LABS: Vancomycin, Trough 6.6 ug/mL (5.0-10.0)
--- NOTE | 2019-02-17 05:57 | NUR ---
SHIFT SUMMARY PATIENT WAS ALERT AND COOPERATIVE AT EVERY INTERVENTION. NO NEW REDNESS OR SWELLING NOTED AT SURGICAL SITE LLE. PATIENT REPORTED HER PREFERENCE TO USE THE BEDPAN OVER THE COMMODE: STATES SHE "GOES BETTER" WHEN ON THE BEDPAN. VSS; BED LOCKED AND LOWERED, CALL LIGHT WITHIN REACH.
--- NOTE | 2019-02-17 09:23 | NUR ---
PCU DAYSHIFT ASSUMED CARE OF PT APPROX. 0700. A&OX4. ASSESSMENT COMPLETED. VITAL SIGNS STABLE. BLOOD PRESSURE SLIGHTLY LOW BUT MAP REMAINS IN 60'S. HELP MORNING BLOOD PRESSURE MEDICATION. SEE EMAR. PT ABLE TO SIT UP AT BEDSIDE FOR BREAKFAST. PT DENIES ANY PAIN IN HER FOOT THIS MORNING. SLIGHTLY EDEMA NOTED IN BLE. BUT UNCHANGED FROM YESTERDAY. DRESSING REMAINS IN PLACE, AND INTACT. NO DRAINAGE NOTED FROM OUTSIDE OF BANDAGE. SKIN AROUND DRESSING RED BUT IMPROVED FROM YESTERDAY. PT REPORTS FEELING GOOD THIS MORNING. PMD IN TO SEE PT. PT STATUS CHANGED. WILL AWAIT NEW ROOM ASSIGNMENT. WILL CALL REPORT TO RECIEVING RN WHEN NEW ROOM ASSIGNED. BED IN LOW POSITION, CALL LIGHT IN REACH AND PT DENIES ANY NEEDS.
--- NOTE | 2019-02-17 10:11 | NUR ---
NOTE REPORT CALLED TO RECIEVING RN. NOTIFIED PT AND FAMILY. GATHERED BELONGING. PT TO BE ESCORTED BY PEER STAFF MEMBER VIA WHEELCHAIR TO NEW ROOM
--- NOTE | 2019-02-17 17:45 | NUR ---
SUMMARY PCU TRANSFER TODAY APPROX 1030. SHE IS A/O X4, PLEASANT AFFECT. S/P I&D L FOOT w DR JONES. L LEG HEAVILY DRESSED BY AFTER PROCEDURE, AUTOCLAVE OPERATOR REPORT DO NOT ATTEMPT CHANGE ONLY RE-ENFORCE IF NECESSARY. DRSG HAS BEEN CDI. SHE IS WT [facility], [address] DAVID IN TO SEE HER THIS AFTERNOON TO REVIEW & CHANGE ANTIBX ORDERS. PLAN FOR HER TO HAVE SURG ON FOOT TOMORROW w DR JONES. NURSE SUPVR STATE TO MAKE PT NPO AFTER MIDNITE. VSS.
--- NOTE | 2019-02-17 22:23 | NUR ---
PT C/O ONGOING CHEST DISCOMFORT, LEFT ARM DISCOMFORT (NO RELIEF WITH NORCO 5/325MG PO GIVEN AT 1905), SOB WITH ORDERS FOR EKG STAT, TELEMETRY.
--- NOTE | 2019-02-17 23:05 | NUR ---
SANA VALADEZ ADVISED OF EKG RESULTS: A/FIB WITH RVR; ORDERS TO .9NS 500ML BOLUS AND THEN .9NS AT 75ML/HR.
--- NOTE | 2019-02-18 01:42 | NUR ---
DR WIGGINS NOTIFED, NO VOID, BLADDER BSNA=174, ORDERS STRAIGHT CATH X 1.
--- NOTE | 2019-02-18 04:29 | NUR ---
SHIFT SUMMARY: 89 Y/O FEMALE HAD RESTLESS NIGHT AFTER INITIALLY HAVING INABILITY TO VOID (VOIDED 200ML VIA BEDPAN AT 0200), C/O CHEST PAIN AND LEFT ARM DISCOMFORT EARLIER SHIFT WITH EKG PERFORMED WITH NO IRREGULARITIES NOTED (HOSPITALIST NOTIFIED), NPO AFTER MIDNIGHT FOR SURGERY LATER TODAY AROUND 1130; LEFT FOOT DRESSING DRY AND INTACT, BED ALARM APPLIED, BED LOW POSITION, CALL LIGHT AT SIDE.
[2019-02-18 05:40] LABS: BASOPHILS ABSOLUTE AUTO 0.05 K/mm3 (0.00-0.23); BASOPHILS PERCENT AUTO 0 % (0-2); EOSINOPHILS ABSOLUTE AUTO 0.03 K/mm3 (0.00-0.68); EOSINOPHILS PERCENT AUTO 0 % (0-6); Hematocrit 28.5 % (33.0-51.0); Hemoglobin 9.4 g/dL (11.5-16.0); IMMATURE GRAN PERCENT AUTO 2 % (0-1); LYMPHOCYTES PERCENT AUTO 7 % (21-46); MONOCYTES ABSOLUTE AUTO 1.15 K/mm3 (0.16-1.47); MONOCYTES PERCENT AUTO 9 % (4-13); Mean Platelet Volume 10.6 fL (9.1-12.4); NEUTROPHILS ABSOLUTE AUTO 11.12 K/mm3 (1.96-9.15); NEUTROPHILS PERCENT AUTO 82 % (41-73); Platelet Count 361 K/mm3 (150-400); Red Blood Cell Count 2.94 M/mm3 (3.80-5.20); White Blood Cell Count 13.55 K/mm3 (4.00-11.30)
[2019-02-18 05:43] LABS: Mean Corpuscular Volume 97 fL (80-100)
[2019-02-18 06:02] LABS: Anion Gap 10 mmol/L (6-16); Blood Urea Nitrogen 29 mg/dL (8-24); Bun/Creatinine Ratio 35.8 (12.0-20.0); CO2, Blood 22 mmol/L (21-32); Calcium, Blood 9.8 mg/dL (8.5-10.1); Chloride, Blood 103 mmol/L (98-108); Creatinine, Blood 0.81 mg/dL (0.40-1.00); Glomerular Filtration Rate >60 (60-); Glucose, Blood 241 mg/dL (70-99); Potassium, Blood 4.2 mmol/L (3.5-5.5); Sodium, Blood 135 mmol/L (136-145)
--- NOTE | 2019-02-18 10:27 | NUR ---
PT COMPLAINED OF SOB. NURSE HEARD EXP WHEEZE. DR SILVERMAN NOTIFIED AT 1025. NEW ORDERS PLACED AND RT NOTIFIED. AWAITING TREATMENT AT THIS TIME.
--- NOTE | 2019-02-18 10:42 | NUR ---
PT'S DAUGHTER JUST ARRIVED TO PT ROOM AND INFORMED RT THAT PT "SOUNDS WHEEZY WHEN SHE HASN'T BEEN GETTING HER LASIX." THIS NURSE NOTIFIED DR SILVERMAN WHO WILL REVIEW PT CHART AND DETERMINE WHICH COURSE OF ACTION IS APPROPRIATE AT THIS TIME.
--- NOTE | 2019-02-18 12:53 | NUR ---
History, Chart, Medications and Allergies reviewed before start of procedure.Lungs clear T/O to Auscultation. Patient confirms NPO status and agrees with scheduled surgery. PT RECEIVED A UDN TX PRIOR TO TRANSPORTING FROM ROOM 313 TO [facility]. PT KARYNA CHAVEZ STATED SANTANA PATIENT WAS HAVING A ROUGH MORNING. B/P HYPOTENSIVE, CBG HIGH. DR DUMONT AND DR GREGORY MADE AWARE. OR NOTIFIED OF MRSA.
--- NOTE | 2019-02-18 19:23 | NUR ---
SHIFT SUMMARY PT AXO, COOPERATIVE WITH CARE THOUGH IRRITABLE. 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 DRESSING CDI, LLE ELEVATED ABOVE HIP LEVEL PER ORDERS. PT TOLERATING DIET THOUGH DECREASED APPETITE. PT HYPOTENSIVE THIS SHIFT, DR SILVERMAN AWARE. BREATHING TREATMENTS ORDERED AND GIVEN X2 THIS SHIFT. BED IN LOW POSITION, CALL LIGHT WITHIN REACH. IV PATENT AND INFUSING PER EMAR.
--- NOTE | 2019-02-19 05:09 | NUR ---
SHIFT SUMMARY: 89 Y/O FEMALE RESTED COMFORTABLY ALL SHIFT, C/O LEFT FOOT PAIN RATED 6/10 WITH NORCO 5/325MG PO X1 GIVEN TWICE WITH RELIEF FELT, ALERT AND ORIENTED X 4, DENIES NAUSEA, TELEMETRY REFLECTS A/FIB WITH HEART RATE 92, LEFT FOOT DRESSING DRY AND INTACT, BED ALARM APPLIED, BED LOW POSITION, CALL LIGHT AT SIDE.
[2019-02-19 06:40] LABS: BASOPHILS ABSOLUTE AUTO 0.08 K/mm3 (0.00-0.23); BASOPHILS PERCENT AUTO 1 % (0-2); EOSINOPHILS ABSOLUTE AUTO 0.23 K/mm3 (0.00-0.68); EOSINOPHILS PERCENT AUTO 1 % (0-6); Hematocrit 29.1 % (33.0-51.0); Hemoglobin 9.4 g/dL (11.5-16.0); IMMATURE GRAN ABSOLUTE AUTO 0.57 K/mm3 (0.00-0.10); IMMATURE GRAN PERCENT AUTO 3 % (0-1); LYMPHOCYTES PERCENT AUTO 9 % (21-46); MONOCYTES ABSOLUTE AUTO 1.67 K/mm3 (0.16-1.47); MONOCYTES PERCENT AUTO 10 % (4-13); Mean Corpuscular HGB Conc 32.3 g/dL (31.5-36.5); Mean Corpuscular Volume 99 fL (80-100); NEUTROPHILS ABSOLUTE AUTO 13.14 K/mm3 (1.96-9.15); NEUTROPHILS PERCENT AUTO 76 % (41-73); Platelet Count 445 K/mm3 (150-400); RDW Coefficient Variation 17.3 % (11.7-14.2); RDW Standard Deviation 60.4 fL (35.1-46.3); Red Blood Cell Count 2.94 M/mm3 (3.80-5.20); White Blood Cell Count 17.29 K/mm3 (4.00-11.30)
[2019-02-19 06:45] LABS: Bun/Creatinine Ratio 40.1 (12.0-20.0); Calcium, Blood 9.7 mg/dL (8.5-10.1); Creatinine, Blood 0.95 mg/dL (0.40-1.00); Potassium, Blood 4.7 mmol/L (3.5-5.5)
--- NOTE | 2019-02-19 14:45 | NUR ---
Echocardiogram completed.
--- NOTE | 2019-02-19 16:40 | NUR ---
CALLED HOSPITALIST/CALLED CAN HANDLER INFORMED THEM OF CRITICAL HIGH TROPONIN 20.9. CAN HANDLER INFORMS ME SHE INTENDS TO ENTER ORDERS FOR LASIX, A CK[facility] LAB AND TROPONIN LAB IN ANOTHER 6 HRS, HEPARIN. PT WILL BE NPO AT MIDNIGHT. POSSIBLY THE PT WILL TRANSFER TO PCU WELL.
--- NOTE | 2019-02-19 17:44 | NUR ---
TRANSFER NOTE HANDOFF REPORT CALLED TO PCU NURSE ISABEL. PT TRANSFERED TO PCU. MEDICATIONS BAGGED AND GIVEN TO PCU NURSE ISABEL. PERSONAL BELONGINGS BAGGED AND TRANSFERED WITH PT. PT TRANSFERED ON 2 LPM O2 VIA NC. TELEMETRY MONITORING. FAMILY ADVISED OF TRANSFER AND FOLLOWED US TO PCU ROOM
--- NOTE | 2019-02-19 19:38 | NUR ---
TRANSFER NOTE RECEIVED REPORT FROM NORI TALAMANTSE RN IN MEDICAL UNIT. PT TO ROOM AT 1740 VIA BED. PT ORIENTED TO ROOM AND UNIT. PT EDUCATED TRY ON BASTER LIGHT AND FALL RISK. PT A&Ox3, UNSURE OF DATE, CORRECT PRESIDENT/YEAR. PER REPORT PT IS SBA, PT REQUESTING TO USE BED PAIN. PT DENIES CHEST PAIN, DIZZY/LIGHTHEADEDNESS AND NUMB/TINGLING. PT SOB AT REST, SP02 >92% ON 2L O2 VIA NC, LS ISSAC/DIM IN BASES. PT DENIES NAUSEA AT THIS TIME, PER REPORT WAS C/O NAUSEA EARLIER IN SHIFT. LEFT FOOT WOUND DRESSING CLEAN/DRY/INTACT. HEPARIN STARTED PER ORDERS UPON TRANSFER TO UNIT. PLANS FOR ANGIO IN AM. VSS. NO OTHER ACUTE CHANGES NOTED. REPORT GIVEN TO ONCOMING RN.
[2019-02-19 23:30] LABS: Creatine Kinase MB Index 11.5 (0.0-4.0)
[2019-02-19 23:37] LABS: Troponin I 14.1 ng/mL (0.000-0.040)
[2019-02-20 03:41] LABS: BASOPHILS ABSOLUTE AUTO 0.04 K/mm3 (0.00-0.23); BASOPHILS PERCENT AUTO 0 % (0-2); EOSINOPHILS ABSOLUTE AUTO 0.26 K/mm3 (0.00-0.68); EOSINOPHILS PERCENT AUTO 2 % (0-6); Hematocrit 25.3 % (33.0-51.0); Hemoglobin 8.2 g/dL (11.5-16.0); IMMATURE GRAN ABSOLUTE AUTO 0.35 K/mm3 (0.00-0.10); IMMATURE GRAN PERCENT AUTO 3 % (0-1); LYMPHOCYTES ABSOLUTE AUTO 1.54 K/mm3 (0.84-5.20); LYMPHOCYTES PERCENT AUTO 11 % (21-46); MONOCYTES ABSOLUTE AUTO 1.51 K/mm3 (0.16-1.47); MONOCYTES PERCENT AUTO 11 % (4-13); Mean Corpuscular HGB 32.3 pg (26.0-34.0); Mean Corpuscular HGB Conc 32.4 g/dL (31.5-36.5); Mean Corpuscular Volume 100 fL (80-100); NEUTROPHILS PERCENT AUTO 73 % (41-73); Platelet Count 485 K/mm3 (150-400); RDW Coefficient Variation 17.4 % (11.7-14.2); Red Blood Cell Count 2.54 M/mm3 (3.80-5.20)
[2019-02-20 04:04] LABS: Bun/Creatinine Ratio 42.9 (12.0-20.0); Calcium, Blood 9.5 mg/dL (8.5-10.1); Creatinine, Blood 1.05 mg/dL (0.40-1.00); Potassium, Blood 4.5 mmol/L (3.5-5.5)
[2019-02-20 04:21] LABS: Creatine Kinase MB 19.7 ng/mL (0.0-3.6)
[2019-02-20 04:25] LABS: Troponin I 13.1 ng/mL (0.000-0.040)
--- NOTE | 2019-02-20 05:26 | NUR ---
SHIFT SUMMARY PT SLEEPING IN ROOM COMFORTABLY AT THIS TIME. PT HAD NO ACUTE CHANGES IN STATUS T/O NIGHT. PT SLEPT WELL. HEPERAIN GTT CONTINUED TO INFUSE IN POWERGLIDE IV. PT CALLED TO USE BEDPAN MULTIPLE TIMES T/O NIGHT. SOME INCONTINCENCE NOTED IN ATTENDS. RESP EVEN UNLABORED ON 2L NC W/ SATS >92%. DENIED CP, DENIES SOB. PT TROP LEVELS TRENDED DOWN T/O NIGHT, STILL HIGH BUT IMPROVING. DENIES OTHER NEEDS. CALL LIGHT IN REACH.
--- NOTE | 2019-02-20 13:03 | NUR ---
LATE ENTRY 1035 - PT RETURNS BACK FROM JET ENGINE MECHANIC, VSS. PT DENIES NUMB/TING, PAIN, CAP REFILL 2 SECONDS. 1050- PT VSS. CONTINUES TO DENY NUMB/TING. STATES PAIN AT CATH SITE SINCE THEY REMOVED THE CATH. CAP REFILL 2 SECONDS. SHAWDOWING NOTED AT WRIST UNDER TR BAND. NO BLEEDING OR BRUISING NOTED OTHERWISE. 1130- NO CHANGES. 1215- 2cc REMOVED. 1254- 2CC REMOVED. VSS
--- NOTE | 2019-02-20 16:26 | NUR ---
LATE ENTRY 1510 TR BAND TO RIGHT RADIAL RECOVERED PER PROTOCOL. SLIGHT SHADOWING AROUND ACCESS SITE, HAS NOT CHANGED SINCE INITIAL NOTING. WILL CONTINUE TO MONITOR.
--- NOTE | 2019-02-20 18:23 | NUR ---
SHIFT SUMMARY PT A&Ox3, FORGETFUL AT TIMES. CALM AND COOPERATIVE WITH CARE. PT RESTING IN BED DURING SHIFT. PT ASSISTS WITH REPOSITIONING. PT DENIES CHEST PAIN/PRESSURE, LIGHTHEADEDNESS AND DIZZINESS AND NAUSEA. PT SOB WITH MOVEMENT. COARSE BREATHING NOTED, ENCOURAGING PT TO CLEAR AIRWAY WITH COUGHING. SPO2 >94% ON RA. RIGHT RADIAL SITE ACCESS THIS AM, SLIGHT SHADOWING NOTING NO CHANGE. DR DUMONT AT BEDSIDE, CHANGES PT DRESSING, WOUND VAC TO BE APPLIED THIS EVENING. HEPARIN TO BE RESTARTED 8 HOURS AFTER TR BAND REMOVAL. LOW BP, THIS EVENING HELD LASIX PER CJ. OTHER VSS. NO OTHER ACUTE CHANGES NOTED DURING SHIFT. WILL CONTINUE TO MONITOR UNTIL REPORT GIVEN TO ONCOMING RN.
--- NOTE | 2019-02-20 19:30 | NUR ---
ASSUMED CARE PT CARE ASSUMED AT APPROXIMATELY 1900. PT IS CURRENTLY RESTING IN BED. AOX4. VSS. R RADIAL SITE WITH ARM BOARD AND CLEAR TEGADERM DRESSING IN PLACE. SITE IS PINPOINT WITH NO NOTED DRAINAGE. NO HEMATOMA OR SWELLING NOTED. SMALL BRUISE NOTED ABOVE SITE APPROXIMATELY THE SIZE OF A DIME AND VERY FAINT. PT DENIES PAIN ON PALPATION TO SITE AND ARM. PT WITH INCONTINENCE EPISODE- ATTENDS AND LINENS CHANGED TO MAINTAIN SKIN INTEGRITY. WILL CONTINUE WITH MONITORING AND ASSESSMENT. BED IN LOWEST POSITION, CALL LIGHT IN REACH.
[2019-02-21 04:07] LABS: BASOPHILS ABSOLUTE AUTO 0.03 K/mm3 (0.00-0.23); BASOPHILS PERCENT AUTO 0 % (0-2); EOSINOPHILS ABSOLUTE AUTO 0.19 K/mm3 (0.00-0.68); EOSINOPHILS PERCENT AUTO 2 % (0-6); Hematocrit 22.4 % (33.0-51.0); Hemoglobin 7.4 g/dL (11.5-16.0); IMMATURE GRAN PERCENT AUTO 2 % (0-1); LYMPHOCYTES ABSOLUTE AUTO 0.87 K/mm3 (0.84-5.20); LYMPHOCYTES PERCENT AUTO 9 % (21-46); MONOCYTES ABSOLUTE AUTO 1.07 K/mm3 (0.16-1.47); MONOCYTES PERCENT AUTO 11 % (4-13); Mean Corpuscular HGB 33.5 pg (26.0-34.0); Mean Corpuscular Volume 101 fL (80-100); Mean Platelet Volume 10.9 fL (9.1-12.4); NEUTROPHILS ABSOLUTE AUTO 7.43 K/mm3 (1.96-9.15); NEUTROPHILS PERCENT AUTO 76 % (41-73); NRBC ABSOLUTE 0.02 K/mm3 (0.00-0.02); NRBC Auto 0.2 /100 WBC (0.0-0.2); Platelet Count 433 K/mm3 (150-400); RDW Coefficient Variation 17.8 % (11.7-14.2); RDW Standard Deviation 62.5 fL (35.1-46.3); Red Blood Cell Count 2.21 M/mm3 (3.80-5.20); White Blood Cell Count 9.79 K/mm3 (4.00-11.30)
[2019-02-21 04:21] LABS: Bun/Creatinine Ratio 45.2 (12.0-20.0); Calcium, Blood 9.2 mg/dL (8.5-10.1); Creatinine, Blood 0.97 mg/dL (0.40-1.00); Magnesium, Blood 1.9 mg/dL (1.6-2.4); Potassium, Blood 3.6 mmol/L (3.5-5.5)
--- NOTE | 2019-02-21 06:04 | NUR ---
SHIFT SUMMARY PT HAS REMAINED AOX4 THROUGHOUT SHIFT WITH OCCASIONAL EPISODES OF FORGETFULNESS UPON WAKING. VSS. PLEASANT AND COOPERATIVE WITH CARE. PT HAS REMAINED ON BEDREST THROUGHOUT THE NIGHT AND TURNS SELF IN BED WITH OCCASIONAL ASSISTANCE FROM STAFF. WOUND VAC PLACED TO L GREAT TOE WOUND BY ASSURANCE MANAGER, KAL, LAST NIGHT WITH MINIMAL DIFFICULTY. PT REPORTING MILD PAIN UPON PLACEMENT THAT DECREASED AFTER ADJUSTING TO IT AND MEDICATED WITH TYLENOL. SMALL AMOUNT OF SANGUINEOUS DRAINAGE NOTED UPON SUCTION INITITION OF WOUND VAC; <25 ML OF TOTAL DRAINAGE NOTED THROUGHOUT THE NIGHT. BLADDER SCAN PERFORMED THIS AM WHEN PATIENT HAD DIFFICULTY VOIDING ON BEDPAN- BLADDER NOTED TO HAVE 303 ML URINE, PT WAS ABLE TO VOID INTO BEDPAN SHORTLY AFTER. O2 SATS HAVE REMAINED >90% ON RA. OCCASIONAL DRY COUGH CONTINUES THROUGHOUT THE NIGHT. NO OTHER CHANGES NOTED FROM INITIAL ASSESSMENT. WILL CONTINUE TO MONITOR AND REPORT TO ONCOMING SHIFT RN. BED IN LOW POSITION, CALL LIGHT IN REACH.
--- NOTE | 2019-02-21 19:51 | NUR ---
SHIFT SUMMARY PT RESTING IN BED THROUGHOUT THE DAY. ALERT AND ORIENTED X3. USING BEDPAN WITHOUT PROBLEMS, BUT HAVING OCCASIONAL INCONTINENCE. LUNG SOUNDS CLEAR, DIMINISHED THROUGHOUT. AFIB ON TELEMETRY 100s-110s. WEAKNESS TO BLE. TRACE EDEMA TO BLE. WOUND VAC TO LEFT FOOT WNL. DENIES PAIN THROUGHOUT THE DAY. VSS. FAMILY AT BEDSIDE OFF AND ON THROUGHOUT THE DAY. WILL CONTINUE TO MONITOR.
[2019-02-22 05:32] LABS: BASOPHILS ABSOLUTE AUTO 0.04 K/mm3 (0.00-0.23); BASOPHILS PERCENT AUTO 0 % (0-2); EOSINOPHILS ABSOLUTE AUTO 0.19 K/mm3 (0.00-0.68); EOSINOPHILS PERCENT AUTO 2 % (0-6); Hematocrit 26.8 % (33.0-51.0); Hemoglobin 8.8 g/dL (11.5-16.0); IMMATURE GRAN ABSOLUTE AUTO 0.14 K/mm3 (0.00-0.10); IMMATURE GRAN PERCENT AUTO 2 % (0-1); LYMPHOCYTES ABSOLUTE AUTO 0.82 K/mm3 (0.84-5.20); LYMPHOCYTES PERCENT AUTO 9 % (21-46); MONOCYTES ABSOLUTE AUTO 0.96 K/mm3 (0.16-1.47); MONOCYTES PERCENT AUTO 11 % (4-13); Mean Corpuscular HGB 31.5 pg (26.0-34.0); Mean Corpuscular HGB Conc 32.8 g/dL (31.5-36.5); NEUTROPHILS ABSOLUTE AUTO 6.85 K/mm3 (1.96-9.15); NEUTROPHILS PERCENT AUTO 76 % (41-73); Platelet Count 412 K/mm3 (150-400); RDW Coefficient Variation 19.2 % (11.7-14.2); RDW Standard Deviation 62.2 fL (35.1-46.3); Red Blood Cell Count 2.79 M/mm3 (3.80-5.20)
[2019-02-22 05:36] LABS: Mean Corpuscular Volume 96 fL (80-100)
[2019-02-22 05:47] LABS: Anion Gap 8 mmol/L (6-16); Blood Urea Nitrogen 39 mg/dL (8-24); Bun/Creatinine Ratio 45.6 (12.0-20.0); CO2, Blood 27 mmol/L (21-32); Chloride, Blood 101 mmol/L (98-108); Creatinine, Blood 0.86 mg/dL (0.40-1.00); Glomerular Filtration Rate >60 (60-); Glucose, Blood 162 mg/dL (70-99); Magnesium, Blood 1.8 mg/dL (1.6-2.4); Potassium, Blood 3.4 mmol/L (3.5-5.5); Sodium, Blood 136 mmol/L (136-145)
--- NOTE | 2019-02-22 05:50 | NUR ---
SHIFT SUMMARY PT HAS REMAINED AOX4 THROUGHOUT SHIFT WITH OCCASIONAL FORGETFULNESS UPON WAKING. VSS. PLEASANT AND COOPERATIVE WITH CARE. PT REMAINS ON BEDREST, BUT IS ABLE TO ASSIST WITH TURNING, CHANGING AND BEDPAN USE. PT REPORTS SOME OCCASIONAL DISCOMFORT TO L FOOT THAT "COMES AND GOES", DENIES NEED FOR PAIN MEDICATION THROUGHOUT THE NIGHT. WOUND VAC REMAINS CONNECTED WITH GOOD SUCTION; LESS THAN 25 ML OUTPUT NOTED THROUGHOUT THE NIGHT. PT CONTINUES TO DENY DYSPNEA. NO OTHER CHANGES NOTED FROM INITIAL ASSESSMENT. WILL CONTINUE TO MONITOR AND REPORT TO ONCOMING SHIFT RN. BED IN LOW POSITION, CALL LIGHT IN REACH. BED ALARM SET FOR SAFETY.
--- NOTE | 2019-02-22 08:15 | NUR ---
PT RESTING IN BED THIS AM. C/O 8 LEFT FOOT PAIN, MEDICATED WITH PRN PAIN MEDS. LUNG SOUNDS CLEAR, DIMINISHED BASES. AFIB RATE 90-100s ON TELEMETRY. WEAKNESS NOTED TO BLE. PT UP TO CHAIR WITH OCCUPATIONAL THERAPY, GAIT BELT, AND FWW. PT TOLERATED WELL. FAMILY AT BEDSIDE THIS AM. WILL CONTINUE TO MONITOR.
[2019-02-22] MEDS ORDERED: Toprol Xl25 MG PO (15:02)
[2019-02-22] MEDS ORDERED: ASCO500 PO (15:02)
[2019-02-22] MEDS ORDERED: ASPI81CH PO (15:03)
[2019-02-22] MEDS ORDERED: CEFAZOLIN2 GM/50 ML IV (15:04)
[2019-02-22] MEDS ORDERED: LISI5 PO (15:04)
[2019-02-22] MEDS ORDERED: ZINC30 MG PO (15:05)
[2019-02-22] MEDS ORDERED: ATOR40TA PO (15:05)
--- NOTE | 2019-02-22 15:56 | NUR ---
DISCHARGE NOTE PT STABLE FOR DISCHARGE TO [facility] FOR IV ANTIBIOTICS. PERIPHERAL IV REMOVED. PT RECEIVING 1600 DOSE OF IV ANTIBIOTICS NOW. POWERGLIDE TO LEFT UPPER ARM, FLUSHES WELL. REPORT CALLED TO KERLINE AT [facility].
--- NOTE | 2019-02-22 16:32 | NUR ---
DISCHARGE TO SNF. PT DISCHARGED VIA WHEELCHAIR TO [facility] WITH PERSONAL BELONGINGS.
== END 2019-02-22 17:25 | disposition home or self-care (01) | DRG 853 ==
LOC: ER 15:11 → MEDS 17:40 → PCU 17:40 → MEDS 02-17 10:28 → PCU 02-19 17:34
PROVIDERS: Internal Medicine; Internal Medicine Interventional Cardiology; Nurse Practitioner Acute Care; Physician Assistant; Podiatrist; ADMIT Internal Medicine
PROC: 0QBP0ZZ Excision of Left Metatarsal, Open Approach (ICD-10-PCS; 2019-02-15)
PROC: 0Y6Q0Z0 Detachment at Left 1st Toe, Complete, Open Approach (ICD-10-PCS; principal; 2019-02-18 13:00)
PROC: 4A023N7 Measurement of Cardiac Sampling and Pressure, Left Heart, Percutaneous Approach (ICD-10-PCS; 2019-02-20)
PROC: B2111ZZ Fluoroscopy of Multiple Coronary Arteries using Low Osmolar Contrast (ICD-10-PCS; 2019-02-20)
DX: A41.01 Sepsis due to Methicillin susceptible Staphylococcus aureus (principal); I50.21 Acute systolic (congestive) heart failure; I21.9 Acute myocardial infarction, unspecified; E11.52 Type 2 diabetes mellitus with diabetic peripheral angiopathy with gangrene; M86.9 Osteomyelitis, unspecified; E87.1 Hypo-osmolality and hyponatremia; E03.9 Hypothyroidism, unspecified; Z87.891 Personal history of nicotine dependence; M06.9 Rheumatoid arthritis, unspecified; E87.6 Hypokalemia; L97.524 Non-pressure chronic ulcer of other part of left foot with necrosis of bone; E11.40 Type 2 diabetes mellitus with diabetic neuropathy, unspecified; I48.2 Chronic atrial fibrillation; I77.1 Stricture of artery; I49.5 Sick sinus syndrome; I34.0 Nonrheumatic mitral (valve) insufficiency; Z79.84 Long term (current) use of oral hypoglycemic drugs; I25.10 Atherosclerotic heart disease of native coronary artery without angina pectoris; Z79.82 Long term (current) use of aspirin; I11.0 Hypertensive heart disease with heart failure
CPT/HCPCS: 36415; 36430; 71045; 73630; 73718; 80048; 80053; 80202; 82550; 82553; 82947; 83036; 83605; 83735; 84443; 84484; 85025; 85610; 85651; 85730; 86140; 86850; 86900; 86901; 86923; 87040; 87070; 87071; 87075; 87077; 87147; 87186; 87205; 88305; 88311; 93005; 93010; 93306; 93458; 93925; 94640; 94760; 94762; 96365; 96367; 96368; 96375; 97110; 97112; 97116; 97161; 97166; 97530; 97535; 99152; 99153; 99285-25; A9270; A9270-GY; C1769; C1894; J0690; J0696; J1644; J1940; J2250; J2370; J2405; J2543; J2704; J3010; J3370; J3480; J7030; J7040; J7050; J7120; P9016; Q9967

== ENCOUNTER 2019-06-12 07:28 | Inpatient (IN) | payer OTHER ==
[~2019-06-12] VITALS: Ht 160 cm; Wt 47.4 kg
[~2019-06-12 07:28] MED LIST changes: +ASCO500 PO; +ATOR40TA PO; +CEFAZOLIN2 GM/50 ML IV; +LISI5 PO; +OMEP20ER PO; -OMEPRAZOLE MAGN20 MG PO; +Toprol Xl25 MG PO; +ZINC30 MG PO
[2019-06-12 08:03] LABS: BASOPHILS ABSOLUTE AUTO 0.03 K/mm3 (0.00-0.23); BASOPHILS PERCENT AUTO 0 % (0-2); EOSINOPHILS ABSOLUTE AUTO 0.01 K/mm3 (0.00-0.68); EOSINOPHILS PERCENT AUTO 0 % (0-6); Hemoglobin 14.2 g/dL (11.5-16.0); IMMATURE GRAN ABSOLUTE AUTO 0.14 K/mm3 (0.00-0.10); IMMATURE GRAN PERCENT AUTO 1 % (0-1); LYMPHOCYTES ABSOLUTE AUTO 0.69 K/mm3 (0.84-5.20); LYMPHOCYTES PERCENT AUTO 3 % (21-46); MONOCYTES ABSOLUTE AUTO 0.85 K/mm3 (0.16-1.47); MONOCYTES PERCENT AUTO 4 % (4-13); Mean Corpuscular HGB 30.7 pg (26.0-34.0); Mean Corpuscular HGB Conc 33.8 g/dL (31.5-36.5); Mean Corpuscular Volume 91 fL (80-100); Mean Platelet Volume 10.4 fL (9.1-12.4); NEUTROPHILS ABSOLUTE AUTO 19.62 K/mm3 (1.96-9.15); NEUTROPHILS PERCENT AUTO 92 % (41-73); Platelet Count 355 K/mm3 (150-400); RDW Coefficient Variation 14.5 % (11.7-14.2); RDW Standard Deviation 47.9 fL (35.1-46.3); Red Blood Cell Count 4.62 M/mm3 (3.80-5.20); White Blood Cell Count 21.34 K/mm3 (4.00-11.30)
[2019-06-12 08:20] LABS: Albumin, Blood 4.4 g/dL (3.4-5.0); Albumin/Globulin Ratio 0.9 (0.8-1.8); Bilirubin, Total 0.7 mg/dL (0.1-1.0); Bun/Creatinine Ratio 38.1 (12.0-20.0); Calcium, Blood 10.5 mg/dL (8.5-10.1); Creatinine, Blood 1.18 mg/dL (0.40-1.00); Globulin, Blood 4.9 g/dL (2.2-4.0); Potassium, Blood 4.9 mmol/L (3.5-5.5); Total Protein, Blood 9.3 g/dL (6.4-8.2)
[2019-06-12 09:05] LABS: International Normalized Ratio 1.07; Prothrombin Time Results 11.3 Sec (9.7-11.5)
[2019-06-12 10:29] LABS: Source, Urine Clean Catch
[2019-06-12 10:45] LABS: Bilirubin, Urine Neg (Neg); Blood, Urine Neg (Neg); Glucose Qualitative, Urine 3+ (Neg); Ketones, Urine 3+ (Neg); Leukocyte Esterase, Urine Neg (Neg); Nitrite, Urine Neg (Neg); Protein, Urine 2+ (Neg); Urobilinogen, Urine NORM (Normal)
[2019-06-12 10:56] LABS: Appearance, Urine Clear (Clear); Color, Urine Yellow (P-Yellow)
[2019-06-12 10:59] LABS: Bacteria Few /hpf; Red Blood Cells, Urine 0-2 /hpf (0-2); Squamous Epithelial Cells Rare /hpf (Few); White Blood Cells, Urine 0-2 /hpf (0-5)
[2019-06-12 11:00] LABS: Amorphous Light (0-Heavy)
[2019-06-12] MEDS ORDERED: Vitamin D2000 UNIT PO (12:12)
[2019-06-12] MEDS ORDERED: Natural Vita400 UNIT PO (12:12)
[2019-06-12] MEDS ORDERED: Fish Oil 10001000 MG PO (12:13)
[2019-06-12] MEDS ORDERED: VITAMIN B-125000 MC2 PO (12:13)
[2019-06-12] MEDS ORDERED: Ferrous Sulfat324 MG PO (12:14)
[2019-06-12] MEDS ORDERED: CENTRUM SILVER1 EAC2 PO (12:14)
[2019-06-12] MEDS ORDERED: ELIQUIS2.5 MG PO (12:16)
[2019-06-12] MEDS ORDERED: POTCHL20ER PO (12:19)
[2019-06-12] MEDS ORDERED: METO25 PO (12:19)
[2019-06-12] MEDS ORDERED: SPIR25 PO (12:20)
[2019-06-12 12:22] LABS: Influenza A Negative (NEGATIVE); Influenza B Negative (NEGATIVE)
[2019-06-12] MEDS ORDERED: ALEN70 PO (12:23)
[2019-06-12 16:43] LABS: Troponin I 0.038 ng/mL (0.000-0.040)
[2019-06-12 16:45] LABS: Thyroid Stimulating Hormone 1.78 uIU/mL (0.360-4.800)
--- NOTE | 2019-06-12 18:36 | NUR ---
1650, PT HAD HYPOTENSIVE BP R ARM 95/52 AND L ARM 67/43. PT DECLINED FEELING DIZZY, NAUSEA, AND HR WAS 90'S-100'S. CALLED DR PINEDO, SHE WANTS NO BP'S DONE ON LEFT ARM. ORDERS RECEIVED FOR IVF BOLUS OF 500ML. DR PINEDO WANTED ME TO GIVE METOPROLOL EVEN THOUGH PT HAD LOWER BP'S, SHE WANTED TO RATE CONTROL PT'S A-FIB. 1834, RE-EVAL POST FLUID BOLUS, BP REMAINS LOW 82/57 WITH MAP OF 65. CALLED DR PINEDO FOR UPDATE, SHE WANTS TO CONTINUE TO MONITOR AND CHECK BP'S. NO NEW ORDERS.
[2019-06-13 00:30] LABS: Hemoglobin 9.8 g/dL (11.5-16.0); Mean Corpuscular HGB 30.2 pg (26.0-34.0); Mean Corpuscular HGB Conc 32.7 g/dL (31.5-36.5); Mean Corpuscular Volume 93 fL (80-100); Mean Platelet Volume 10.4 fL (9.1-12.4); Platelet Count 219 K/mm3 (150-400); RDW Coefficient Variation 14.6 % (11.7-14.2); RDW Standard Deviation 49.1 fL (35.1-46.3); Red Blood Cell Count 3.24 M/mm3 (3.80-5.20); White Blood Cell Count 10.01 K/mm3 (4.00-11.30)
[2019-06-13 00:46] LABS: Calcium, Blood 9.1 mg/dL (8.5-10.1); Creatinine, Blood 1.08 mg/dL (0.40-1.00); Potassium, Blood 4.1 mmol/L (3.5-5.5)
--- NOTE | 2019-06-13 05:47 | NUR ---
SHIFT SUMMARY PT HYPOTENSIVE IN NIGHT; ASSYMPTOMATIC; WHEN AWOKE BP IMPROVED; THIS AM VITALS WNL; PT ON RA W/ O2 SATS >92; PT PLEASANT AND COMPLIANT W/ CARE; AT TIMES ANSWERS VARY AND SEEMS FORGETFUL; SBA W/ FWW FOR BATHROOM PRIVILEGES; PT UP TO BATHROOM A FEW TIMES IN NIGHT WITH NO OUTPUT; L AC IV SALINE LOC; FLUSHES APPROPRIATELY; PT C/O BACK PAIN AND STATES IT IS FROM FALL AT HOME; PT REPOSITIONED AND GIVEN TYLENOL PER EMAR; PT ENCOURAGED PO FLUIDS; HOT COCOA BROUGHT TO PT TO ENCOURAGE INTAKE; CALL LIGHT IN REACH; BED IN LOWEST POSITION; WILL CONTINUE TO MONITOR CLOSELY UNTIL HAND OFF TO DAY SHIFT RN
--- NOTE | 2019-06-13 10:13 | NUR ---
DR IN TO ASSESS PT. NOTIFIED OF URINE RETENTION & CURRENT VS. PO METOROLOL ORDERED TO BE GIVEN AT THIS TIME. PT UP TO THE BATHROOM TO ATTEMPT TO VOID AND SHOWER. WILL BLADDER SCAN AND NOTIFY OF RESULTS IF UNABLE TO VOID.
--- NOTE | 2019-06-13 17:41 | NUR ---
REPORT CALL TO KASSANDRA TRONCOSO ON MEDICAL FLOOR. PT WAS TOILETED AT THIS TIME, 100 ML OF URINE NOTED IN URINE HAT. 300 ML TOTAL OF URINE OUT PUT FOR THE DAY. IS AWARE. PO INTAKE HAS BEEN ENC. PT HAS BEEN NAUSEOUS THIS AFTERNOON. IV ZOFRAN GIVEN PER EMAR. TYLENOL GIVEN FOR BACK PAIN, LIDOCAINE PATCH PLACED TO MID BACK @ 1710. BP REMAINS STABLE, AFEBRILE. FAMILY IN ROOM THROUGH OUT THE DAY TO VISIT. RESP UNLABORED.
--- NOTE | 2019-06-13 18:21 | NUR ---
PT AO SITTTING IN BED WATCHING TV. PT JUST ARRIVED AT 1800 VIA WHEELCHAIR. PT COMFORTABLE AND RESTING AT THIS TIME. CALL LIGHT WITHIN REACH, WILL CONTINUE TO MONITOR.
[2019-06-14 05:10] LABS: BASOPHILS ABSOLUTE AUTO 0.01 K/mm3 (0.00-0.23); BASOPHILS PERCENT AUTO 0 % (0-2); EOSINOPHILS ABSOLUTE AUTO 0.06 K/mm3 (0.00-0.68); EOSINOPHILS PERCENT AUTO 1 % (0-6); Hemoglobin 10.9 g/dL (11.5-16.0); IMMATURE GRAN ABSOLUTE AUTO 0.03 K/mm3 (0.00-0.10); IMMATURE GRAN PERCENT AUTO 0 % (0-1); LYMPHOCYTES ABSOLUTE AUTO 0.93 K/mm3 (0.84-5.20); LYMPHOCYTES PERCENT AUTO 12 % (21-46); MONOCYTES ABSOLUTE AUTO 0.76 K/mm3 (0.16-1.47); MONOCYTES PERCENT AUTO 10 % (4-13); Mean Corpuscular HGB 30.4 pg (26.0-34.0); Mean Corpuscular Volume 92 fL (80-100); Mean Platelet Volume 10.6 fL (9.1-12.4); NEUTROPHILS ABSOLUTE AUTO 6.02 K/mm3 (1.96-9.15); NEUTROPHILS PERCENT AUTO 77 % (41-73); Platelet Count 185 K/mm3 (150-400); RDW Coefficient Variation 14.5 % (11.7-14.2); RDW Standard Deviation 48.6 fL (35.1-46.3); Red Blood Cell Count 3.58 M/mm3 (3.80-5.20); White Blood Cell Count 7.81 K/mm3 (4.00-11.30)
[2019-06-14 05:33] LABS: Anion Gap 7 mmol/L (6-16); Blood Urea Nitrogen 26 mg/dL (8-24); Bun/Creatinine Ratio 33.4 (12.0-20.0); CO2, Blood 20 mmol/L (21-32); Calcium, Blood 9.2 mg/dL (8.5-10.1); Chloride, Blood 107 mmol/L (98-108); Creatinine, Blood 0.78 mg/dL (0.40-1.00); Glomerular Filtration Rate >60 (60-); Glucose, Blood 119 mg/dL (70-99); Phosphorus, Blood 1.7 mg/dL (2.5-4.9); Sodium, Blood 134 mmol/L (136-145)
--- NOTE | 2019-06-14 07:40 | NUR ---
SHIFT SUMMARY: VSS. AFEB. A/OX3. MAKES NEEDS KNOWN. NO ATTEMPTS TO SELF TRANSFER. BED ALARM ON. PT REPORTS ONGOING NAUSEA, ZOFRAN ADMINISTERED WITH GOOD EFFECT. PT IS CONTINENT VOIDING URINE TONIGHT. AMB W 1 SBA AND FWW. SLEPT INTERMITTENTLY. BED LOW, CALL BUTTON IN REACH.
[2019-06-14] MEDS ORDERED: LIDOCAINE PAIN1 EACH TOP (12:27)
[2019-06-14] MEDS ORDERED: K-Phos Origina500 MG PO (12:28)
[2019-06-14] MEDS ORDERED: ONDA4ODT MM (12:28)
--- NOTE | 2019-06-14 18:32 | NUR ---
SHIFT SUMMARY NO ACUTE CHANGES THIS SHIFT, PT COMPLAINED OF MILD NAUSEA T/O SHIFT STATED ITS BETTER THIS EVENING, ZOFRAN ADMIN 1X, PT BEDRESTING AT THIS TIME, CALL LIGHT IN REACH, WILL CONT TO MONITOR UNTIL REPORT GIVEN TO STELLA TRONCOSO.
--- NOTE | 2019-06-14 22:40 | NUR ---
IV SITE: PATIENT REPORTS IV TENDERNESS WHEN IV POTASIUM IS STARTED. IV SITE FLUSHES AND IV PROTONIX WAS GIVEN BUT PATIENT IS UNABLE TO TOLERATE IV POTASIUM. DISSCUSSED WITH MONSERRAT FOSTER NP THE POSSIBILITY OF RUNNING POTASIUM CONCURRENT WITH NS BUT THIS WOULD INCREASE THE AMOUNT OF FLUID, BNP WAS 1345 THIS AM. POTASIUM IS CHANGED TO ORAL AND MED IS GIVEN.
[2019-06-15 05:33] LABS: Anion Gap 9 mmol/L (6-16); Blood Urea Nitrogen 25 mg/dL (8-24); Bun/Creatinine Ratio 29.7 (12.0-20.0); CO2, Blood 22 mmol/L (21-32); Calcium, Blood 9.2 mg/dL (8.5-10.1); Chloride, Blood 103 mmol/L (98-108); Creatinine, Blood 0.84 mg/dL (0.40-1.00); Glomerular Filtration Rate >60 (60-); Glucose, Blood 126 mg/dL (70-99); Phosphorus, Blood 2.3 mg/dL (2.5-4.9); Potassium, Blood 3.9 mmol/L (3.5-5.5); Sodium, Blood 134 mmol/L (136-145)
--- NOTE | 2019-06-15 06:42 | NUR ---
SHIFT SUMMARY: PATIENT TOLERATED PO POTASSIUM WELL, NO C/O NAUSEA THIS SHIFT. POTASSIUM ON MORNING LABS WAS 3.9, DOWN FROM 4. PATIENT CONTINUES TO REPORT CHRONIC BACK PAIN, SCHEDULED TYLENOL AND HEAT THERAPY IS EFFECTIVE FOR PAIN CONTROL.
--- NOTE | 2019-06-15 17:11 | NUR ---
SUMM- PT A/O SLEEPY BUT AROUSABLE. TAKING MEDS WITH SIPS, REFUSED ALL MEALS TODAY. TOOK IN APPROX 400ML H2O WITH COAXING. REFUSED ALL VIT/MINERAL SUPP AT LUNCH TIME. GOT UP IN THE CHAIR FOR LUNCH FOR 15MIN AND REQ TO GO BACK TO BED. MEDICATED X2 FOR BACK PAIN, CHRONIC, PLACED HEAT PAD. GAVE PHENERGAN IV ONCE AND AIDED IN RELEIVING NAUSEA. PT REFUSED PHYSICAL THERAPY BEING TOO SLEEPY. DR PINEDO CAME BY AROUND 1500, NEW ORDERS RECEIVED. AWARE PT IS EATING AND DRINKING VERY LITTLE. AWARE PT LOST IV AND TOOK ATTEMPTS X4 TO RESTART. NO BM TODAY, BUT GIVEN MIRILAX.
--- NOTE | 2019-06-16 04:17 | NUR ---
GI: PATIENT REPORTED NAUSEA, PRN ZOFRAN GIVEN WITH GOOD EFFECT.
--- NOTE | 2019-06-16 05:04 | NUR ---
GI: PATIENT DOES NOT WANT TO TAKE SYNTHROID AT THIS TIME DUE TO LINGERING NAUSEA. IV PROTONIX IS GIVEN.
[2019-06-16 05:15] LABS: BASOPHILS ABSOLUTE AUTO 0.04 K/mm3 (0.00-0.23); BASOPHILS PERCENT AUTO 0 % (0-2); EOSINOPHILS ABSOLUTE AUTO 0.07 K/mm3 (0.00-0.68); EOSINOPHILS PERCENT AUTO 1 % (0-6); Hematocrit 42.8 % (33.0-51.0); Hemoglobin 14.4 g/dL (11.5-16.0); IMMATURE GRAN ABSOLUTE AUTO 0.05 K/mm3 (0.00-0.10); IMMATURE GRAN PERCENT AUTO 0 % (0-1); LYMPHOCYTES ABSOLUTE AUTO 1.34 K/mm3 (0.84-5.20); LYMPHOCYTES PERCENT AUTO 10 % (21-46); MONOCYTES ABSOLUTE AUTO 0.84 K/mm3 (0.16-1.47); MONOCYTES PERCENT AUTO 6 % (4-13); Mean Corpuscular HGB 30.8 pg (26.0-34.0); Mean Corpuscular HGB Conc 33.6 g/dL (31.5-36.5); Mean Corpuscular Volume 92 fL (80-100); Mean Platelet Volume 10.2 fL (9.1-12.4); NEUTROPHILS ABSOLUTE AUTO 10.98 K/mm3 (1.96-9.15); NEUTROPHILS PERCENT AUTO 82 % (41-73); Platelet Count 269 K/mm3 (150-400); RDW Coefficient Variation 14.5 % (11.7-14.2); RDW Standard Deviation 48.3 fL (35.1-46.3); Red Blood Cell Count 4.68 M/mm3 (3.80-5.20); White Blood Cell Count 13.32 K/mm3 (4.00-11.30)
[2019-06-16 05:37] LABS: Alanine Aminotransfer (ALT/SGP 19 U/L (12-78); Albumin, Blood 3.6 g/dL (3.4-5.0); Albumin/Globulin Ratio 0.8 (0.8-1.8); Alk Phos 97 U/L (50-136); Anion Gap 9 mmol/L (6-16); Aspartate Aminotrans (AST/SGOT 11 U/L (12-37); Bilirubin, Direct 0.3 mg/dL (0.0-0.3); Bilirubin, Indirect 0.5 mg/dL (0.1-0.7); Bilirubin, Total 0.8 mg/dL (0.1-1.0); Blood Urea Nitrogen 26 mg/dL (8-24); Bun/Creatinine Ratio 30.1 (12.0-20.0); CO2, Blood 24 mmol/L (21-32); Calcium, Blood 9.6 mg/dL (8.5-10.1); Chloride, Blood 100 mmol/L (98-108); Creatinine, Blood 0.86 mg/dL (0.40-1.00); Globulin, Blood 4.5 g/dL (2.2-4.0); Glomerular Filtration Rate >60 (60-); Glucose, Blood 152 mg/dL (70-99); Magnesium, Blood 2.2 mg/dL (1.6-2.4); Phosphorus, Blood 3.2 mg/dL (2.5-4.9); Potassium, Blood 3.8 mmol/L (3.5-5.5); Sodium, Blood 133 mmol/L (136-145); Total Protein, Blood 8.1 g/dL (6.4-8.2)
--- NOTE | 2019-06-16 07:48 | NUR ---
SHIFT SUMMARY: PATIENT REPORTS IV PROTONIX HAS HELPED THE NAUSEA BETTER THAN THE ZOFRAN AND IS ABLE TO TAKE HER 0600 PROTONIX. INTAKE CONTINUES TO BE VERY POOR, ONLY TAKING A SMALL AMOUT OF WATER THIS SHIFT.
--- NOTE | 2019-06-16 18:18 | NUR ---
SHIFT SUMMARY. 1447 PT TRANSFERED FROM ICU FOR COMFORT MEASURES, PT SOLMULENT, NO S/SX OF DISTRESS OR DISCOMFORT. 1548 TIME OF , CN AND REVERSAL PRINT INSPECTOR NOTIFIED, CALL OUT TO HOSPITALIST. 1645 DR[address] AMEZCUA NOTIFIED OF TOD. 1745 FAMILY DEPARTED WITH PT'S BELONGINGS, INCLUDING RINGS.
--- NOTE | 2019-06-17 01:09 | NUR ---
IV ACCESS- LATE ENTRY FOR 06/16/19 2300: PATIENT HAS LOST IV ACCESS, SHE IS A VERY DIFFICULT STIC REQUIRING 5 ATTEMPTS JUST YESTERDAY. PATIENT IS EATING WELL TODAY AND REPORTS NAUSEA HAS RESOLVED. PATIENT REQUESTS NO IV START. PATIENT HAS BEEN AFIB ON TELEMETRY WITH NO EVENTS SINCE ADMIT TO FLOOR, X 3 DAYS. MONSERRAT FOSTER [employer]SE GENERAL LABORER IS NOTIFIED OF ABOVE INFORMATION AND AN ORDER FOR NO IV ACCESS AND TO DC TELEMETRY.
[2019-06-17 05:20] LABS: BASOPHILS ABSOLUTE AUTO 0.03 K/mm3 (0.00-0.23); BASOPHILS PERCENT AUTO 0 % (0-2); EOSINOPHILS PERCENT AUTO 3 % (0-6); IMMATURE GRAN ABSOLUTE AUTO 0.02 K/mm3 (0.00-0.10); IMMATURE GRAN PERCENT AUTO 0 % (0-1); LYMPHOCYTES ABSOLUTE AUTO 1.43 K/mm3 (0.84-5.20); LYMPHOCYTES PERCENT AUTO 19 % (21-46); MONOCYTES ABSOLUTE AUTO 0.42 K/mm3 (0.16-1.47); MONOCYTES PERCENT AUTO 6 % (4-13); Mean Corpuscular HGB 30.7 pg (26.0-34.0); Mean Corpuscular HGB Conc 34.4 g/dL (31.5-36.5); Mean Platelet Volume 10.7 fL (9.1-12.4); NEUTROPHILS ABSOLUTE AUTO 5.51 K/mm3 (1.96-9.15); NEUTROPHILS PERCENT AUTO 72 % (41-73); Platelet Count 244 K/mm3 (150-400); RDW Coefficient Variation 14.4 % (11.7-14.2); RDW Standard Deviation 46.4 fL (35.1-46.3); Red Blood Cell Count 3.58 M/mm3 (3.80-5.20); White Blood Cell Count 7.61 K/mm3 (4.00-11.30)
[2019-06-17 05:21] LABS: Mean Corpuscular Volume 89 fL (80-100)
--- NOTE | 2019-06-17 06:23 | NUR ---
SHIFT SUMMARY: PATIENT HAD A TOTAL OF THREE BM'S S/P SUPPOSITORY & STOOL SOFTENER. PATIENT REFUSED SENNA AND MIRALAX DUE TO HAVING RESULTS FROM THE SUPPOSITORY. APPETITE IS IMPROVED, NAUSEA IS ALSO IMPROVED.
[2019-06-17] MEDS ORDERED: MIRALAX17 GM PO (11:54)
--- NOTE | 2019-06-17 15:13 | NUR ---
1451 PT DISCHARGED HOME VIA PERSONAL VEHICLE ACCOMPANIED AND DRIVEN BY DAUGHTER. PT'S DAUGHTER TRANSPORTED PT TO ENTRANCE VIA W/C, REFUSED ESCORT. D/C PAPERWORK REVIEWED WITH PT AND DAUGHTER, PT'S DAUGHTER ASSISTS PT WITH MEDICATIONS. PT REQUIRED ZOFRAN ONCE THIS AM, CONTINUED WITH MINIMAL FOOD INTAKE. NO OTHER CHANGES OR CONCERNS.
== END 2019-06-17 14:51 | disposition home health service (06) | DRG 392 ==
LOC: ER 07:28 → PCU 11:41 → ER 11:41 → PCU 13:18 → MEDS 06-13 18:00 → ENPENDDIS 06-14 10:45 → EDPENDDIS 06-14 10:45 → MEDS 06-16 10:00
PROVIDERS: Emergency Medicine; Physician Assistant; ADMIT Internal Medicine
DX: K44.9 Diaphragmatic hernia without obstruction or gangrene (principal); I48.20 Chronic atrial fibrillation, unspecified; S22.080A Wedge compression fracture of T11-T12 vertebra, initial encounter for closed fracture; E44.1 Mild protein-calorie malnutrition; E87.1 Hypo-osmolality and hyponatremia; E87.2 Acidosis; I50.22 Chronic systolic (congestive) heart failure; R33.8 Other retention of urine; W18.30XA Fall on same level, unspecified, initial encounter; Y92.9 Unspecified place or not applicable; E86.0 Dehydration; M06.9 Rheumatoid arthritis, unspecified; E03.9 Hypothyroidism, unspecified; M85.80 Other specified disorders of bone density and structure, unspecified site; E83.39 Other disorders of phosphorus metabolism; E78.00 Pure hypercholesterolemia, unspecified; I08.1 Rheumatic disorders of both mitral and tricuspid valves; Z87.891 Personal history of nicotine dependence
CPT/HCPCS: 36415; 51702; 71045; 74018; 74176; 80048; 80053; 80069; 81001; 82248; 82947; 83605; 83690; 83735; 83880; 84100; 84145; 84443; 84484; 85025; 85027; 85610; 87040; 87081; 87430; 87804; 93005; 93010; 96361-59; 96365-59; 96366-59; 96375-59; 97116; 97162; 97165; 97530; 97535; 99285-25; A9270; C9113; G0378; J0696; J0780; J1200; J2405; J2550; J7030; J7040; J7060; J8610

== ENCOUNTER 2019-07-05 20:29 | Emergency (ER) | payer OTHER ==
[~2019-07-05] VITALS: Ht 157.5 cm; Wt 52.2 kg
[~2019-07-05 20:29] MED LIST changes: +ALEN70 PO; +CENTRUM SILVER1 EAC2 PO; +ELIQUIS2.5 MG PO; +Ferrous Sulfat324 MG PO; +Fish Oil 10001000 MG PO; +K-Phos Origina500 MG PO; +LIDOCAINE PAIN1 EACH TOP; +MIRALAX17 GM PO; +Natural Vita400 UNIT PO; +ONDA4ODT MM; +POTCHL20ER PO; +SPIR25 PO; +VITAMIN B-125000 MC2 PO; +Vitamin D2000 UNIT PO
[2019-07-05 21:38] LABS: BASOPHILS ABSOLUTE AUTO 0.04 K/mm3 (0.00-0.23); BASOPHILS PERCENT AUTO 0 % (0-2); EOSINOPHILS ABSOLUTE AUTO 0.09 K/mm3 (0.00-0.68); EOSINOPHILS PERCENT AUTO 1 % (0-6); Hematocrit 41.5 % (33.0-51.0); IMMATURE GRAN ABSOLUTE AUTO 0.03 K/mm3 (0.00-0.10); IMMATURE GRAN PERCENT AUTO 0 % (0-1); LYMPHOCYTES PERCENT AUTO 6 % (21-46); MONOCYTES ABSOLUTE AUTO 0.62 K/mm3 (0.16-1.47); MONOCYTES PERCENT AUTO 5 % (4-13); Mean Corpuscular HGB 31.1 pg (26.0-34.0); Mean Corpuscular HGB Conc 33.7 g/dL (31.5-36.5); Mean Corpuscular Volume 92 fL (80-100); NEUTROPHILS ABSOLUTE AUTO 10.54 K/mm3 (1.96-9.15); NEUTROPHILS PERCENT AUTO 88 % (41-73); Platelet Count 423 K/mm3 (150-400); RDW Coefficient Variation 15.6 % (11.7-14.2); White Blood Cell Count 12.02 K/mm3 (4.00-11.30)
[2019-07-05 21:55] LABS: Alanine Aminotransfer (ALT/SGP 18 U/L (12-78); Albumin, Blood 3.7 g/dL (3.4-5.0); Albumin/Globulin Ratio 0.8 (0.8-1.8); Alk Phos 165 U/L (50-136); Anion Gap 11 mmol/L (6-16); Aspartate Aminotrans (AST/SGOT 22 U/L (12-37); Bilirubin, Total 0.7 mg/dL (0.1-1.0); Blood Urea Nitrogen 29 mg/dL (8-24); Bun/Creatinine Ratio 36.6 (12.0-20.0); CO2, Blood 21 mmol/L (21-32); Calcium, Blood 10.2 mg/dL (8.5-10.1); Chloride, Blood 97 mmol/L (98-108); Creatinine, Blood 0.79 mg/dL (0.40-1.00); Globulin, Blood 4.5 g/dL (2.2-4.0); Glomerular Filtration Rate >60 (60-); Glucose, Blood 171 mg/dL (70-99); Potassium, Blood 3.9 mmol/L (3.5-5.5); Sodium, Blood 129 mmol/L (136-145); Total Protein, Blood 8.2 g/dL (6.4-8.2)
[2019-07-05 23:12] LABS: Source, Urine Clean Catch
[2019-07-05 23:15] LABS: Appearance, Urine Clear (Clear); Bilirubin, Urine Neg (Neg); Blood, Urine 3+ (Neg); Color, Urine Yellow (P-Yellow); Glucose Qualitative, Urine Neg (Neg); Ketones, Urine Neg (Neg); Leukocyte Esterase, Urine 1+ (Neg); Nitrite, Urine Neg (Neg); Protein, Urine Neg (Neg); Specific Gravity, Urine 1.015 (1.003-1.022); Urobilinogen, Urine NORM (Normal)
[2019-07-05 23:29] LABS: Bacteria Many /hpf; Red Blood Cells, Urine 0-2 /hpf (0-2); Squamous Epithelial Cells Few /hpf (Few)
== END 2019-07-06 01:52 | disposition home or self-care (01) ==
LOC: ER 20:29
PROVIDERS: Emergency Medicine
DX: R33.9 Retention of urine, unspecified (principal); Z88.1 Allergy status to other antibiotic agents; Z88.2 Allergy status to sulfonamides; Z79.899 Other long term (current) drug therapy; Z79.84 Long term (current) use of oral hypoglycemic drugs; I10 Essential (primary) hypertension; E11.9 Type 2 diabetes mellitus without complications; E03.9 Hypothyroidism, unspecified; Z87.891 Personal history of nicotine dependence
CPT/HCPCS: 36415; 51702; 74018; 80053; 81001; 83690; 85025; 87077; 87086; 87186; 93005; 93010; 96374; 99284-25; J2405

== ENCOUNTER → 2019-07-25 | Outpatient (CLI) | payer OTHER | LOC: LAB EV 18:43 → LAB SHORT 18:43 | DX: N39.0 Urinary tract infection, site not specified (principal) | CPT/HCPCS: 87077; 87086; 87186 ==

== ENCOUNTER 2019-08-15 00:20 | Day surgery (SDC) | payer OTHER | END 2019-08-15 10:19 | disposition home or self-care (01) | LOC: ATC 00:20 | DX: R33.9 Retention of urine, unspecified (principal); K44.9 Diaphragmatic hernia without obstruction or gangrene; R11.2 Nausea with vomiting, unspecified; M48.56XS Collapsed vertebra, not elsewhere classified, lumbar region, sequela of fracture; R63.4 Abnormal weight loss; I10 Essential (primary) hypertension; E78.5 Hyperlipidemia, unspecified; E11.9 Type 2 diabetes mellitus without complications; I25.10 Atherosclerotic heart disease of native coronary artery without angina pectoris; Z79.01 Long term (current) use of anticoagulants; Z79.899 Other long term (current) drug therapy; Z88.2 Allergy status to sulfonamides; Z88.8 Allergy status to other drugs, medicaments and biological substances; Z87.891 Personal history of nicotine dependence; Z79.84 Long term (current) use of oral hypoglycemic drugs ==

== ENCOUNTER → 2019-11-21 | Outpatient (CLI) | payer OTHER | END | disposition home or self-care (01) | LOC: LAB SHORT 18:42 → LAB 18:42 | DX: E11.621 Type 2 diabetes mellitus with foot ulcer (principal); L97.511 Non-pressure chronic ulcer of other part of right foot limited to breakdown of skin | CPT/HCPCS: 87070; 87205 ==

== ENCOUNTER 2020-06-07 13:25 | Emergency (ER) | payer OTHER ==
[~2020-06-07] VITALS: Ht 160 cm; Wt 51.7 kg
[~2020-06-07 13:25] MED LIST changes: -FURO20 PO; -LEVSOD50 PO; -OMEP20ER PO; -ONDA4ODT MM
[2020-06-07 14:29] LABS: BASOPHILS ABSOLUTE AUTO 0.02 K/mm3 (0.00-0.23); BASOPHILS PERCENT AUTO 0 % (0-2); EOSINOPHILS PERCENT AUTO 0 % (0-6); Hematocrit 38.7 % (33.0-51.0); Hemoglobin 12.3 g/dL (11.5-16.0); IMMATURE GRAN ABSOLUTE AUTO 0.08 K/mm3 (0.00-0.10); IMMATURE GRAN PERCENT AUTO 1 % (0-1); LYMPHOCYTES ABSOLUTE AUTO 0.61 K/mm3 (0.84-5.20); LYMPHOCYTES PERCENT AUTO 4 % (21-46); MONOCYTES ABSOLUTE AUTO 0.41 K/mm3 (0.16-1.47); MONOCYTES PERCENT AUTO 3 % (4-13); Mean Corpuscular HGB 30.8 pg (26.0-34.0); Mean Corpuscular HGB Conc 31.8 g/dL (31.5-36.5); Mean Corpuscular Volume 97 fL (80-100); Mean Platelet Volume 10.2 fL (9.1-12.4); NEUTROPHILS ABSOLUTE AUTO 14.23 K/mm3 (1.96-9.15); NEUTROPHILS PERCENT AUTO 93 % (41-73); Platelet Count 413 K/mm3 (150-400); RDW Coefficient Variation 15.9 % (11.7-14.2); RDW Standard Deviation 54.3 fL (35.1-46.3); Red Blood Cell Count 3.99 M/mm3 (3.80-5.20); White Blood Cell Count 15.35 K/mm3 (4.00-11.30)
[2020-06-07 14:46] LABS: Alanine Aminotransfer (ALT/SGP 18 U/L (12-78); Albumin, Blood 3.7 g/dL (3.4-5.0); Albumin/Globulin Ratio 0.8 (0.8-1.8); Alk Phos 83 U/L (50-136); Anion Gap 13 mmol/L (6-16); Aspartate Aminotrans (AST/SGOT 17 U/L (12-37); Bilirubin, Total 0.9 mg/dL (0.1-1.0); Blood Urea Nitrogen 22 mg/dL (8-24); Bun/Creatinine Ratio 35.1 (12.0-20.0); CO2, Blood 20 mmol/L (21-32); Calcium, Blood 10.1 mg/dL (8.5-10.1); Chloride, Blood 100 mmol/L (98-108); Creatinine, Blood 0.63 mg/dL (0.40-1.00); Globulin, Blood 4.4 g/dL (2.2-4.0); Glomerular Filtration Rate >60 (60-); Glucose, Blood 244 mg/dL (70-99); Sodium, Blood 133 mmol/L (136-145); Total Protein, Blood 8.1 g/dL (6.4-8.2)
[2020-06-07] MEDS ORDERED: HYDR1TAB94 PO (17:11)
[2020-06-07] MEDS ORDERED: Zofran4 MG PO (17:11)
== END 2020-06-07 17:32 | disposition home or self-care (01) ==
LOC: ER 13:25
PROVIDERS: Physician Assistant
DX: S22.32XA Fracture of one rib, left side, initial encounter for closed fracture (principal); I10 Essential (primary) hypertension; E11.9 Type 2 diabetes mellitus without complications; E03.9 Hypothyroidism, unspecified; I48.91 Unspecified atrial fibrillation; Z79.01 Long term (current) use of anticoagulants; Z79.899 Other long term (current) drug therapy; Z88.2 Allergy status to sulfonamides; Z88.1 Allergy status to other antibiotic agents; Z87.891 Personal history of nicotine dependence; W01.0XXA Fall on same level from slipping, tripping and stumbling without subsequent striking against object, initial encounter
CPT/HCPCS: 71046; 80053; 83880; 84484; 85025; 86850; 86900; 86901; 93005; 93010; 96374; 99284-25; J2405

== ENCOUNTER 2020-06-10 11:00 | Observation (INO) | payer OTHER ==
[~2020-06-10] VITALS: Ht 160 cm; Wt 46.9 kg
[~2020-06-10 11:00] MED LIST changes: +Zofran4 MG PO
[2020-06-10 12:36] LABS: BASOPHILS PERCENT AUTO 0 % (0-2); EOSINOPHILS PERCENT AUTO 0 % (0-6); Hematocrit 38.4 % (33.0-51.0); Hemoglobin 12.2 g/dL (11.5-16.0); IMMATURE GRAN ABSOLUTE AUTO 0.05 K/mm3 (0.00-0.10); IMMATURE GRAN PERCENT AUTO 1 % (0-1); LYMPHOCYTES ABSOLUTE AUTO 0.39 K/mm3 (0.84-5.20); LYMPHOCYTES PERCENT AUTO 4 % (21-46); MONOCYTES ABSOLUTE AUTO 0.53 K/mm3 (0.16-1.47); MONOCYTES PERCENT AUTO 6 % (4-13); Mean Corpuscular HGB Conc 31.8 g/dL (31.5-36.5); Mean Corpuscular Volume 98 fL (80-100); Mean Platelet Volume 9.8 fL (9.1-12.4); NEUTROPHILS ABSOLUTE AUTO 8.66 K/mm3 (1.96-9.15); NEUTROPHILS PERCENT AUTO 90 % (41-73); Platelet Count 458 K/mm3 (150-400); RDW Coefficient Variation 16.2 % (11.7-14.2); Red Blood Cell Count 3.94 M/mm3 (3.80-5.20); White Blood Cell Count 9.63 K/mm3 (4.00-11.30)
[2020-06-10 12:54] LABS: Alanine Aminotransfer (ALT/SGP 18 U/L (12-78); Albumin, Blood 3.7 g/dL (3.4-5.0); Albumin/Globulin Ratio 0.9 (0.8-1.8); Alk Phos 80 U/L (50-136); Anion Gap 10 mmol/L (6-16); Aspartate Aminotrans (AST/SGOT 19 U/L (12-37); Bilirubin, Total 0.7 mg/dL (0.1-1.0); Blood Urea Nitrogen 34 mg/dL (8-24); Bun/Creatinine Ratio 44.6 (12.0-20.0); CO2, Blood 23 mmol/L (21-32); Chloride, Blood 103 mmol/L (98-108); Creatinine, Blood 0.76 mg/dL (0.40-1.00); Glomerular Filtration Rate >60 (60-); Glucose, Blood 205 mg/dL (70-99); Sodium, Blood 136 mmol/L (136-145); Total Protein, Blood 7.7 g/dL (6.4-8.2); Troponin I 0.134 ng/mL (0.000-0.040)
[2020-06-10] MEDS ORDERED: ONDA4 PO (13:34)
[2020-06-10] MEDS ORDERED: HYDROCODONE-AC1 EA10 PO (13:34)
[2020-06-10] MEDS ORDERED: FURO20 PO (13:35)
[2020-06-10] MEDS ORDERED: FOSAMAX70 MG PO (13:35)
[2020-06-10] MEDS ORDERED: EUTHYROX50 MCG PO (13:36)
[2020-06-10] MEDS ORDERED: METHOTREXATE2.5 M1 PO (13:36)
[2020-06-10] MEDS ORDERED: OMEP20ER PO (13:36)
[2020-06-10] MEDS ORDERED: POTCHL20ER PO (17:48)
[2020-06-11 04:15] LABS: BASOPHILS ABSOLUTE AUTO 0.01 K/mm3 (0.00-0.23); BASOPHILS PERCENT AUTO 0 % (0-2); EOSINOPHILS ABSOLUTE AUTO 0.02 K/mm3 (0.00-0.68); EOSINOPHILS PERCENT AUTO 0 % (0-6); Hematocrit 34.5 % (33.0-51.0); Hemoglobin 11.2 g/dL (11.5-16.0); IMMATURE GRAN ABSOLUTE AUTO 0.06 K/mm3 (0.00-0.10); IMMATURE GRAN PERCENT AUTO 1 % (0-1); LYMPHOCYTES ABSOLUTE AUTO 0.81 K/mm3 (0.84-5.20); LYMPHOCYTES PERCENT AUTO 9 % (21-46); MONOCYTES ABSOLUTE AUTO 1.09 K/mm3 (0.16-1.47); MONOCYTES PERCENT AUTO 12 % (4-13); Mean Corpuscular HGB 31.2 pg (26.0-34.0); Mean Corpuscular HGB Conc 32.5 g/dL (31.5-36.5); Mean Corpuscular Volume 96 fL (80-100); NEUTROPHILS ABSOLUTE AUTO 7.48 K/mm3 (1.96-9.15); NEUTROPHILS PERCENT AUTO 79 % (41-73); Platelet Count 379 K/mm3 (150-400); RDW Coefficient Variation 16.7 % (11.7-14.2); RDW Standard Deviation 53.1 fL (35.1-46.3); Red Blood Cell Count 3.59 M/mm3 (3.80-5.20); White Blood Cell Count 9.47 K/mm3 (4.00-11.30)
[2020-06-11 04:36] LABS: Anion Gap 8 mmol/L (6-16); Blood Urea Nitrogen 31 mg/dL (8-24); CO2, Blood 28 mmol/L (21-32); Calcium, Blood 9.3 mg/dL (8.5-10.1); Chloride, Blood 103 mmol/L (98-108); Creatinine, Blood 0.76 mg/dL (0.40-1.00); Glomerular Filtration Rate >60 (60-); Glucose, Blood 150 mg/dL (70-99); Magnesium, Blood 2.2 mg/dL (1.6-2.4); Sodium, Blood 139 mmol/L (136-145)
[2020-06-12 12:01] LABS: Albumin, Blood 3.3 g/dL (3.4-5.0); Anion Gap 8 mmol/L (6-16); Blood Urea Nitrogen 27 mg/dL (8-24); CO2, Blood 26 mmol/L (21-32); Chloride, Blood 100 mmol/L (98-108); Creatinine, Blood 0.73 mg/dL (0.40-1.00); Glomerular Filtration Rate >60 (60-); Glucose, Blood 182 mg/dL (70-99); Phosphorus, Blood 2.1 mg/dL (2.5-4.9); Potassium, Blood 4.1 mmol/L (3.5-5.5); Sodium, Blood 134 mmol/L (136-145)
[2020-06-13 05:30] LABS: Anion Gap 7 mmol/L (6-16); Blood Urea Nitrogen 24 mg/dL (8-24); Bun/Creatinine Ratio 30.8 (12.0-20.0); CO2, Blood 30 mmol/L (21-32); Calcium, Blood 8.7 mg/dL (8.5-10.1); Chloride, Blood 97 mmol/L (98-108); Creatinine, Blood 0.78 mg/dL (0.40-1.00); Glomerular Filtration Rate >60 (60-); Glucose, Blood 136 mg/dL (70-99); Phosphorus, Blood 2.8 mg/dL (2.5-4.9); Sodium, Blood 134 mmol/L (136-145)
[2020-06-13] MEDS ORDERED: PANT40 PO (11:02)
[2020-06-13] MEDS ORDERED: LIDOCAINE1 EAC1 TOP (11:03)
[2020-06-13] MEDS ORDERED: ACET325 PO (11:03)
[2020-06-13] MEDS ORDERED: SENN187 PO (11:04)
[2020-06-13] MEDS ORDERED: TRAM50 PO (11:05)
[2020-06-13] MEDS ORDERED: ELIQUIS2.5 MG PO (11:06)
[2020-06-13] MEDS ORDERED: METO50 PO (11:07)
== END 2020-06-13 15:29 | disposition home or self-care (01) ==
LOC: ER 11:00 → PCU 11:01 → ER 16:09 → PCU 16:09 → MEDS 06-12 15:53
PROVIDERS: Internal Medicine; Physician Assistant; ADMIT Internal Medicine
DX: I48.20 Chronic atrial fibrillation, unspecified (principal); I11.0 Hypertensive heart disease with heart failure; I50.33 Acute on chronic diastolic (congestive) heart failure; I08.1 Rheumatic disorders of both mitral and tricuspid valves; I70.8 Atherosclerosis of other arteries; K44.9 Diaphragmatic hernia without obstruction or gangrene; E44.1 Mild protein-calorie malnutrition; I25.10 Atherosclerotic heart disease of native coronary artery without angina pectoris; E78.5 Hyperlipidemia, unspecified; R07.81 Pleurodynia; R77.8 Other specified abnormalities of plasma proteins; K55.069 Acute infarction of intestine, part and extent unspecified; E11.9 Type 2 diabetes mellitus without complications; M06.9 Rheumatoid arthritis, unspecified; E03.9 Hypothyroidism, unspecified; R10.9 Unspecified abdominal pain; M48.55XA Collapsed vertebra, not elsewhere classified, thoracolumbar region, initial encounter for fracture; Z88.1 Allergy status to other antibiotic agents; Z88.2 Allergy status to sulfonamides; Z79.01 Long term (current) use of anticoagulants; Z79.899 Other long term (current) drug therapy; Z87.891 Personal history of nicotine dependence; Z95.5 Presence of coronary angioplasty implant and graft; Z23 Encounter for immunization; Z20.828 Contact with and (suspected) exposure to other viral communicable diseases; Z68.20 Body mass index [BMI] 20.0-20.9, adult
CPT/HCPCS: 36415; 71046; 71275; 74175; 80048; 80053; 80069; 82947; 83735; 83880; 84484; 85025; 93005; 93010; 94760; 96374; 97110; 97116; 97161; 97165; 97530; 97535; 98960; 99285-25; A9270; A9270-GY; J1940; J2405; J7030; J7050; J8610; Q9967

== ENCOUNTER 2020-12-27 00:44 | Day surgery (SDC) | payer OTHER ==
[~2020-12-27 00:44] MED LIST changes: +EUTHYROX50 MCG PO; +FOSAMAX70 MG PO; +FURO20 PO; +HYDROCODONE-AC1 EA10 PO; +LIDOCAINE1 EAC1 TOP; +METHOTREXATE2.5 M1 PO; +METO50 PO; +OMEP20ER PO; +ONDA4 PO; +PANT40 PO; +SENN187 PO; +TRAM50 PO
== END 2020-12-27 23:04 | disposition home or self-care (01) ==
LOC: WOUND 00:44
DX: E11.622 Type 2 diabetes mellitus with other skin ulcer (principal); L97.812 Non-pressure chronic ulcer of other part of right lower leg with fat layer exposed; I25.10 Atherosclerotic heart disease of native coronary artery without angina pectoris; R60.0 Localized edema; E11.21 Type 2 diabetes mellitus with diabetic nephropathy; S98.112A Complete traumatic amputation of left great toe, initial encounter; E11.628 Type 2 diabetes mellitus with other skin complications; I73.9 Peripheral vascular disease, unspecified; I87.2 Venous insufficiency (chronic) (peripheral); E11.42 Type 2 diabetes mellitus with diabetic polyneuropathy; I48.91 Unspecified atrial fibrillation; I10 Essential (primary) hypertension; M06.9 Rheumatoid arthritis, unspecified; Z88.1 Allergy status to other antibiotic agents
CPT/HCPCS: G0463

== ENCOUNTER 2021-01-01 04:17 | Day surgery (SDC) | payer OTHER | END 2021-01-01 23:59 | disposition home or self-care (01) | LOC: WOUND 04:17 | DX: E11.622 Type 2 diabetes mellitus with other skin ulcer (principal); L97.812 Non-pressure chronic ulcer of other part of right lower leg with fat layer exposed; I25.10 Atherosclerotic heart disease of native coronary artery without angina pectoris; R60.0 Localized edema; E11.21 Type 2 diabetes mellitus with diabetic nephropathy; S98.112A Complete traumatic amputation of left great toe, initial encounter; X58.XXXA Exposure to other specified factors, initial encounter; E11.628 Type 2 diabetes mellitus with other skin complications; I73.9 Peripheral vascular disease, unspecified; I87.2 Venous insufficiency (chronic) (peripheral) | CPT/HCPCS: A9270; G0463 ==

== ENCOUNTER 2021-01-08 07:04 | Day surgery (SDC) | payer OTHER | END 2021-01-08 22:51 | disposition home or self-care (01) | LOC: WOUND 07:04 | DX: E11.622 Type 2 diabetes mellitus with other skin ulcer (principal); L97.212 Non-pressure chronic ulcer of right calf with fat layer exposed; S98.112A Complete traumatic amputation of left great toe, initial encounter; X58.XXXA Exposure to other specified factors, initial encounter; E11.21 Type 2 diabetes mellitus with diabetic nephropathy; E11.628 Type 2 diabetes mellitus with other skin complications; I73.9 Peripheral vascular disease, unspecified; I87.2 Venous insufficiency (chronic) (peripheral); I25.10 Atherosclerotic heart disease of native coronary artery without angina pectoris; R60.0 Localized edema | CPT/HCPCS: A9270; G0463 ==

== ENCOUNTER 2021-01-10 09:43 | Emergency (ER) | payer OTHER ==
[~2021-01-10] VITALS: Ht 152.4 cm; Wt 52.2 kg
[2021-01-10 10:18] LABS: BASOPHILS ABSOLUTE AUTO 0.08 K/mm3 (0.00-0.23); BASOPHILS PERCENT AUTO 1 % (0-2); EOSINOPHILS ABSOLUTE AUTO 0.13 K/mm3 (0.00-0.68); EOSINOPHILS PERCENT AUTO 2 % (0-6); Hematocrit 36.5 % (33.0-51.0); Hemoglobin 11.3 g/dL (11.5-16.0); IMMATURE GRAN ABSOLUTE AUTO 0.03 K/mm3 (0.00-0.10); IMMATURE GRAN PERCENT AUTO 0 % (0-1); LYMPHOCYTES ABSOLUTE AUTO 0.72 K/mm3 (0.84-5.20); LYMPHOCYTES PERCENT AUTO 8 % (21-46); MONOCYTES ABSOLUTE AUTO 0.92 K/mm3 (0.16-1.47); MONOCYTES PERCENT AUTO 11 % (4-13); Mean Corpuscular HGB 30.7 pg (26.0-34.0); Mean Corpuscular Volume 99 fL (80-100); NEUTROPHILS ABSOLUTE AUTO 6.91 K/mm3 (1.96-9.15); NEUTROPHILS PERCENT AUTO 79 % (41-73); Platelet Count 336 K/mm3 (150-400); RDW Coefficient Variation 18.6 % (11.7-14.2); RDW Standard Deviation 67.7 fL (35.1-46.3); Red Blood Cell Count 3.68 M/mm3 (3.80-5.20); White Blood Cell Count 8.79 K/mm3 (4.00-11.30)
[2021-01-10 10:46] LABS: Alanine Aminotransfer (ALT/SGP 19 U/L (12-78); Albumin, Blood 3.4 g/dL (3.4-5.0); Albumin/Globulin Ratio 0.9 (0.8-1.8); Alk Phos 90 U/L (50-136); Anion Gap 7 mmol/L (6-16); Aspartate Aminotrans (AST/SGOT 25 U/L (12-37); Bilirubin, Total 0.5 mg/dL (0.1-1.0); Blood Urea Nitrogen 22 mg/dL (8-24); CO2, Blood 22 mmol/L (21-32); Calcium, Blood 9.9 mg/dL (8.5-10.1); Chloride, Blood 109 mmol/L (98-108); Creatinine, Blood 0.73 mg/dL (0.40-1.00); Globulin, Blood 3.6 g/dL (2.2-4.0); Glomerular Filtration Rate >60 (60-); Glucose, Blood 132 mg/dL (70-99); Potassium, Blood 3.9 mmol/L (3.5-5.5); Sodium, Blood 138 mmol/L (136-145)
== END 2021-01-10 20:30 | disposition home or self-care (01) ==
LOC: ER 09:43
PROVIDERS: Physician Assistant
DX: R53.1 Weakness (principal); Z79.01 Long term (current) use of anticoagulants; Z88.2 Allergy status to sulfonamides; Z88.1 Allergy status to other antibiotic agents; Z79.899 Other long term (current) drug therapy
CPT/HCPCS: 36415; 80053; 84484; 85025; 93005; 93010; 99284-25

== ENCOUNTER 2021-01-30 02:42 | Day surgery (SDC) | payer OTHER | END 2021-01-30 23:14 | disposition home or self-care (01) | LOC: WOUND 02:42 | DX: E11.622 Type 2 diabetes mellitus with other skin ulcer (principal); L97.212 Non-pressure chronic ulcer of right calf with fat layer exposed; L97.812 Non-pressure chronic ulcer of other part of right lower leg with fat layer exposed; S98.112A Complete traumatic amputation of left great toe, initial encounter; X58.XXXA Exposure to other specified factors, initial encounter; E11.628 Type 2 diabetes mellitus with other skin complications; E11.51 Type 2 diabetes mellitus with diabetic peripheral angiopathy without gangrene; I87.2 Venous insufficiency (chronic) (peripheral); E11.21 Type 2 diabetes mellitus with diabetic nephropathy; I25.10 Atherosclerotic heart disease of native coronary artery without angina pectoris; R60.0 Localized edema | CPT/HCPCS: A9270; G0463 ==

== ENCOUNTER 2021-02-27 00:48 | Day surgery (SDC) | payer OTHER | END 2021-02-27 23:55 | disposition home or self-care (01) | LOC: WOUND 00:48 | DX: E11.622 Type 2 diabetes mellitus with other skin ulcer (principal); L97.212 Non-pressure chronic ulcer of right calf with fat layer exposed; I25.10 Atherosclerotic heart disease of native coronary artery without angina pectoris; R60.0 Localized edema; E11.21 Type 2 diabetes mellitus with diabetic nephropathy; S98.112A Complete traumatic amputation of left great toe, initial encounter; X58.XXXA Exposure to other specified factors, initial encounter; E11.628 Type 2 diabetes mellitus with other skin complications; E11.51 Type 2 diabetes mellitus with diabetic peripheral angiopathy without gangrene; I87.2 Venous insufficiency (chronic) (peripheral); I10 Essential (primary) hypertension; M06.9 Rheumatoid arthritis, unspecified; I48.91 Unspecified atrial fibrillation; E11.42 Type 2 diabetes mellitus with diabetic polyneuropathy; Z88.1 Allergy status to other antibiotic agents | CPT/HCPCS: A9270 ==

== ENCOUNTER 2021-03-11 05:04 | Day surgery (SDC) | payer OTHER | END 2021-03-11 23:29 | disposition home or self-care (01) | LOC: WOUND 05:04 | DX: E11.622 Type 2 diabetes mellitus with other skin ulcer (principal); L97.812 Non-pressure chronic ulcer of other part of right lower leg with fat layer exposed; L97.212 Non-pressure chronic ulcer of right calf with fat layer exposed; E11.21 Type 2 diabetes mellitus with diabetic nephropathy; E11.628 Type 2 diabetes mellitus with other skin complications; E11.51 Type 2 diabetes mellitus with diabetic peripheral angiopathy without gangrene; I25.10 Atherosclerotic heart disease of native coronary artery without angina pectoris; R60.0 Localized edema; S98.112A Complete traumatic amputation of left great toe, initial encounter; I87.2 Venous insufficiency (chronic) (peripheral); I10 Essential (primary) hypertension | CPT/HCPCS: A9270 ==

== ENCOUNTER 2021-04-02 03:16 | Day surgery (SDC) | payer OTHER | END 2021-04-02 12:00 | disposition home or self-care (01) | LOC: WOUND 03:16 | DX: E11.622 Type 2 diabetes mellitus with other skin ulcer (principal); L97.212 Non-pressure chronic ulcer of right calf with fat layer exposed; I25.10 Atherosclerotic heart disease of native coronary artery without angina pectoris; E11.21 Type 2 diabetes mellitus with diabetic nephropathy; S98.112A Complete traumatic amputation of left great toe, initial encounter; X58.XXXA Exposure to other specified factors, initial encounter; E11.628 Type 2 diabetes mellitus with other skin complications; E11.51 Type 2 diabetes mellitus with diabetic peripheral angiopathy without gangrene; I87.2 Venous insufficiency (chronic) (peripheral); R60.0 Localized edema | CPT/HCPCS: A9270 ==

== ENCOUNTER 2021-06-25 11:36 | Day surgery (SDC) | payer OTHER | END 2021-06-25 23:06 | disposition home or self-care (01) | LOC: WOUND 11:36 | DX: E11.622 Type 2 diabetes mellitus with other skin ulcer (principal); L97.812 Non-pressure chronic ulcer of other part of right lower leg with fat layer exposed; L89.894 Pressure ulcer of other site, stage 4; L89.893 Pressure ulcer of other site, stage 3; I25.10 Atherosclerotic heart disease of native coronary artery without angina pectoris; E11.21 Type 2 diabetes mellitus with diabetic nephropathy; E11.51 Type 2 diabetes mellitus with diabetic peripheral angiopathy without gangrene; R60.0 Localized edema; I87.2 Venous insufficiency (chronic) (peripheral); Z98.62 Peripheral vascular angioplasty status | CPT/HCPCS: G0463 ==